=== PATIENT | female | born 1970 | race Caucasian/White ===

== ENCOUNTER → 2018-03-08 12:31 | Outpatient (CLI) | payer OTHER, SELFPAY ==
--- NOTE | 2018-03-08 | DI.MG.S_ITS ---
BILATERAL DIGITAL SCREENING MAMMOGRAM 3D/2D WITH CAD: 03/08/2018 CLINICAL: Routine screening. Comparison is made to exams dated: 01/26/2014 mammogram and 09/12/2010 mammogram - [facility]. The tissue of both breasts is heterogeneously dense. This may lower the sensitivity of mammography. Current study was also evaluated with a Computer Aided Detection (CAD) system. No significant masses, calcifications, or other findings are seen in either breast. There has been no significant interval change. IMPRESSION: NEGATIVE There is no mammographic evidence of malignancy. A 1 year screening mammogram is recommended. This exam was interpreted at Station ID: [id number]. NOTE: For mammograms, a report in lay terms will be sent to the patient. Approximately 15% of breast malignancies will not be visualized mammographically. In the management of a palpable breast mass, a negative mammogram must not discourage biopsy of a clinically suspicious lesion. Electronically Signed By: Stefan polanco/rajesh:03/08/2018 21:21:05 letter sent: Normal Exam ACR BI-RADS Category 1: Negative 3341F
== END ==
PROVIDERS: Family Provider Internal Medicine; PCP Internal Medicine; Visit Provider Internal Medicine
DX: Z12.31 Encounter for screening mammogram for malignant neoplasm of breast (principal)
CPT/HCPCS: 77063; 77067

== ENCOUNTER → 2019-03-08 17:55 | Outpatient (CLI) | payer OTHER, SELFPAY ==
--- NOTE | 2019-03-08 | DI.MG.S_ITS ---
BILATERAL DIGITAL SCREENING MAMMOGRAM 3D/2D WITH CAD: 03/08/2019 CLINICAL: Routine screening. Comparison is made to exams dated: 03/08/2018 mammogram, 01/26/2014 mammogram, 09/12/2010 mammogram, and 09/12/2010 [facility]. The tissue of both breasts is heterogeneously dense. This may lower the sensitivity of mammography. Current study was also evaluated with a Computer Aided Detection (CAD) system. No significant masses, calcifications, or other findings are seen in either breast. There has been no significant interval change. IMPRESSION: NEGATIVE There is no mammographic evidence of malignancy. A 1 year screening mammogram is recommended. This exam was interpreted at Station ID: [id number]. NOTE: For mammograms, a report in lay terms will be sent to the patient. Approximately 15% of breast malignancies will not be visualized mammographically. In the management of a palpable breast mass, a negative mammogram must not discourage biopsy of a clinically suspicious lesion. Electronically Signed By: Carlos angeles/[email or web address]:03/09/2019 19:02:02 letter sent: Normal Exam ACR BI-RADS Category 1: Negative 3341F
== END ==
PROVIDERS: Family Provider Internal Medicine; PCP Internal Medicine; Visit Provider Obstetrics & Gynecology
DX: Z12.31 Encounter for screening mammogram for malignant neoplasm of breast (principal)
CPT/HCPCS: 77063; 77067

== ENCOUNTER → 2021-01-18 13:12 | Outpatient (CLI) | payer OTHER, SELFPAY ==
--- NOTE | 2021-01-18 | DI.MG.S_ITS ---
BILATERAL DIGITAL SCREENING MAMMOGRAM 3D/2D WITH CAD: 01/18/2021 CLINICAL: Routine screening. Comparison is made to exams dated: 03/08/2019 mammogram, 03/08/2018 mammogram, and 01/26/2014 mammogram - [facility]. The tissue of both breasts is heterogeneously dense. This may lower the sensitivity of mammography. Current study was also evaluated with a Computer Aided Detection (CAD) system. No significant masses, calcifications, or other findings are seen in either breast. There has been no significant interval change. IMPRESSION: NEGATIVE There is no mammographic evidence of malignancy. A 1 year screening mammogram is recommended. This exam was interpreted at Station ID: [id number]. NOTE: For mammograms, a report in lay terms will be sent to the patient. Approximately 15% of breast malignancies will not be visualized mammographically. In the management of a palpable breast mass, a negative mammogram must not discourage biopsy of a clinically suspicious lesion. Electronically Signed By: Darron claros/rajesh:01/18/2021 13:33:16 letter sent: Normal Exam ACR BI-RADS Category 1: Negative 3341F
== END ==
PROVIDERS: Family Provider Internal Medicine; PCP Family Medicine; Referring Provider Family Medicine; Visit Provider Family Medicine
DX: Z12.31 Encounter for screening mammogram for malignant neoplasm of breast (principal)
CPT/HCPCS: 77063; 77067

== ENCOUNTER → 2021-04-27 08:19 | Outpatient (CLI) | payer OTHER, SELFPAY ==
[2021-04-27 09:02] LABS: Add Manual Diff / Slide Review NO; Basophils Absolute Auto 0 /uL (0-100); Basophils Percent Auto 0.6 % (0-2); Eosinophils Absolute Auto 100 /uL (0-450); Eosinophils Percent Auto 1.4 % (2-4); Hematocrit 42.2 % (36-46); Hemoglobin 14.2 g/dL (12.0-16.0); Lymphocytes Absolute Auto 1400 /uL (1100-4500); Lymphocytes Percent Auto 30.4 % (25-40); Mean Corpuscular HGB Conc 33.7 % (30-36); Mean Corpuscular Hemoglobin 31.1 PG (26-34); Mean Corpuscular Volume 92.4 fL (80-100); Monocytes Absolute Auto 400 /uL (0-900); Monocytes Percent Auto 8.9 % (3-14); Neutrophils Absolute Auto 2700 /uL (1500-7000); Neutrophils Percent Auto 58.7 % (50-75); Platelet Count 289 X10^3/uL (150-400); Red Blood Cell Count 4.57 X10^6/uL (4.0-5.2); Red Cell Distribution Width 12.5 % (11.6-14.8); White Blood Cell Count 4.6 X10^3/uL (4.5-11.0)
[2021-04-27 09:28] LABS: BUN Creatinine Ratio 18.8 (6-22); Blood Urea Nitrogen 15 mg/dL (7-17); Calcium 9.2 mg/dL (8.4-10.2); Carbon Dioxide 30 mmol/L (22-32); Chloride 107 mmol/L (98-107); Estimated Glomerular Filt Rate > 60.0 mL/min (>60); Glucose 90 mg/dL (70-100); HEMOLYSIS < 15 (0-50); Potassium 4.3 mmol/L (3.4-5.1); Sodium 141 mmol/L (137-145)
[2021-04-27 10:01] LABS: Thyroid Stimulating Hormone 2.35 uIU/mL (0.47-4.68)
[2021-04-28 09:46] LABS: Cholesterol HDL Ratio 2.6 ratio (0.0-4.4); Cholesterol,Total 139 mg/dL (100-199); HDL Cholesterol 53 mg/dL (>39); LDL Cholesterol Cal 76 mg/dL (0-99); Triglycerides 45 mg/dL (0-149); VLDL Cholesterol Cal 10 mg/dL (5-40)
== END ==
PROVIDERS: Family Provider Internal Medicine; PCP Family Medicine; Referring Provider Obstetrics & Gynecology; Visit Provider Obstetrics & Gynecology
DX: N95.1 Menopausal and female climacteric states (principal)
CPT/HCPCS: 36415; 80048; 80061; 84439; 84443; 85025

== ENCOUNTER → 2021-04-30 09:06 | Outpatient (CLI) | payer OTHER, SELFPAY ==
[2021-04-30 09:45] LABS: COVID19 -Nasal RAPID Negative (Negative)
== END ==
PROVIDERS: Family Provider Internal Medicine; PCP Family Medicine; Visit Provider Nurse Practitioner Family
DX: Z20.822 Contact with and (suspected) exposure to COVID-19 (principal); J02.9 Acute pharyngitis, unspecified; R09.81 Nasal congestion
CPT/HCPCS: 87635

== ENCOUNTER → 2022-01-29 14:12 | Outpatient (CLI) | payer OTHER, SELFPAY ==
--- NOTE | 2022-01-29 14:14 | DI.MG.S_ITS ---
BILATERAL DIGITAL SCREENING MAMMOGRAM 3D/2D WITH CAD: 01/29/2022 CLINICAL: Routine screening. Comparison is made to exams dated: 01/18/2021 mammogram, 03/08/2019 mammogram, and 03/08/2018 mammogram - [facility]. The tissue of both breasts is heterogeneously dense. This may lower the sensitivity of mammography. Current study was also evaluated with a Computer Aided Detection (CAD) system. No significant masses, calcifications, or other findings are seen in either breast. There has been no significant interval change. IMPRESSION: NEGATIVE There is no mammographic evidence of malignancy. A 1 year screening mammogram is recommended. Based on the Tyrer Cuzick model (a risk assessment model) the patient's lifetime risk is 13.9% and her 10 year risk is 3.3%. According to the ACR, ACS, and NCCN guidelines, an annual breast MRI exam along with mammogram is recommended if the patient's lifetime risk is 20% or greater. This exam was interpreted at Station ID: [id number]. NOTE: For mammograms, a report in lay terms will be sent to the patient. Approximately 15% of breast malignancies will not be visualized mammographically. In the management of a palpable breast mass, a negative mammogram must not discourage biopsy of a clinically suspicious lesion. Electronically Signed By: Usman [email or web address]/[email or web address]:01/29/2022 15:03:18 letter sent: Normal Exam ACR BI-RADS Category 1: Negative 3341F
== END ==
PROVIDERS: Family Provider Internal Medicine; PCP Family Medicine; Referring Provider Family Medicine; Visit Provider Family Medicine
DX: Z12.31 Encounter for screening mammogram for malignant neoplasm of breast (principal)
CPT/HCPCS: 77063; 77067

== ENCOUNTER → 2022-03-12 11:05 | Outpatient (CLI) | payer OTHER, SELFPAY ==
[2022-03-12 12:54] LABS: COVID19 -Nasal RAPID Negative (Negative)
== END ==
PROVIDERS: Family Provider Family Medicine; PCP Family Medicine; Visit Provider Surgery
DX: Z20.822 Contact with and (suspected) exposure to COVID-19 (principal); Z01.812 Encounter for preprocedural laboratory examination
CPT/HCPCS: 87635; C9803

== ENCOUNTER 2022-03-13 08:02 | Day surgery (SDC) | payer OTHER, SELFPAY ==
[2022-03-13 08:24] VITALS: BP 107/73; PULSE 62; RESP 16; TEMP 36.2; O2SAT 100; BMI 25.8
[2022-03-13] MEDS: LACTATED RINGERS 1,000 ML 150 ML IV (08:33)
--- NOTE | 2022-03-13 09:05 | PM.HP.1 ---
History of Present Illness History of Present Illness Date Patient Seen: 03/13/22 Time Patient Seen: 09:05 Chief complaint: SDC Narrative: Damaris is a 51-year-old woman who is here for colonoscopy for colon cancer screening. She has never had a colonoscopy before. She has no known family history of colon cancer. Patient History Medical History (Updated 03/13/22 @ 09:06 by Lauro Roblero MD) Abnormal Pap smear of cervix (~1993) Acquired short leg syndrome on left Actinic keratosis (~2003) Anemia (~1987) Anxiety (~2004) Back stiffness Carpal tunnel syndrome (~1995) Cervical somatic dysfunction Chicken pox (~1977) Chronic right hip pain Coccyx disorder Depression (~2004) Endometriosis (~2002) Foot pain (~2009) Fracture (~1994) Generalized anxiety disorder with panic attacks Headache (~1986) Heavy menstrual period (~1985) History of iron deficiency anemia Iliotibial band syndrome, right leg Infertility (~2001) Irregular menstrual cycle (~1985) Lumbar region somatic dysfunction Migraines (~1999) Painful menstrual periods (~1985) Pelvic floor dysfunction in female Pelvic somatic dysfunction Piriformis syndrome of right side PMDD (premenstrual dysphoric disorder) (~2006) Pulmonary fibrosis Ruptured tympanic membrane (~1994) Sacral region somatic dysfunction Segmental and somatic dysfunction of abdomen and other regions Segmental and somatic dysfunction of rib cage Somatic dysfunction of lower extremity Sprain and strain of sacrotuberous (ligament) Stress incontinence Thoracic region somatic dysfunction Vertigo (~2014) Vision disorder Surgical History Anesthesia History of third molar tooth extraction (~1986) In vitro fertilization (~2002) Ovarian cyst rupture (~2002) Status post hysteroscopy (~2002) Status post laparotomy (~2002) Status post osteotomy (~06/2014) Family & Social History Family History (Updated 03/15/20 @ 11:32 by Andrzej Lorenzo DO) Father Age: 78 Hypertension High cholesterol Gout Mother Lung cancer Heart disease Hypertension Mental health problem Sister Age: 52 Anxiety and depression Sister Age: 49 Bipolar 1 disorder Grandfather No problems noted. Grandmother No problems noted. Grandfather No problems noted. Grandmother No problems noted. Social History: household members family Tobacco & Substance use: Smoking Status Never smoker alcohol intake frequency holiday/special occasion Substance Use Type does not use Meds Home Medications and Allergies Home Medications Medication Instructions Recorded Confirmed Type bupropion HCl 150 mg tablet,12 hr 150 mg PO BID #180 tabs 01/14/22 03/13/22 Rx sustained-release lorazepam 0.5 mg tablet See Rx Instructions .Route 02/10/22 03/13/22 Rx .COMPLEX #30 tabs Allergies Allergy/AdvReac Type Severity Reaction Status Date / Time amoxicillin [From AUGMENTIN] Allergy Mild rash Verified 03/13/22 08:22 clavulanic acid Allergy Mild rash Verified 03/13/22 08:22 [From AUGMENTIN] latex Allergy Mild Verified 03/13/22 08:22 Exam Vital Signs (past 8 hours): - 03/13/22 08:24 Temperature 97.1 F L Pulse Rate 62 Respiratory Rate 16 Blood Pressure 107/73 Pulse Oximetry 100 Oxygen Delivery Method Room Air Oxygen Delivery Method Room Air Const General: No acute distress Resp Effort & Inspection: normal respiratory effort Assessment & Plan Assessment and plan (1) Colon cancer screening: Status: Acute Plan Discussed risks and benefits of colonoscopy for colon cancer screening and she would like to proceed. Time Spent With Patient Critical Care time: I spent a total of [] minutes of critical care time on this patient's care today; this time is exclusive of procedural time.
[2022-03-13] MEDS: fentaNYL 100 MCG/2 ML INJ IV (09:18)
[2022-03-13] MEDS: MIDAZOLAM 5 MG/5 ML VIAL IV (09:18)
--- NOTE | 2022-03-13 09:33 | PM.OP.COLON ---
Operative Date/Time/Diagnoses Date of procedure: 03/13/22 Time of procedure: 09:33 Pre-op diagnosis: Colon cancer screening Post-op diagnosis: same Procedure & Clinicians Study performed: Colonoscopy Same procedure as scheduled: Yes Surgeon: Lauro Roblero Procedure Notes Procedure in detail: Surgeon: Lauro Roblero MD Procedure: The patient was brought to the endoscopy suite, placed in left lateral decubitus position. The patient was connected to monitoring devices. A time-out was performed. Sedation was administered. Once the patient was adequately sedated, a digital rectal exam was performed and was normal. The scope was then inserted and advanced to the cecum where the appendiceal orifice was identified and photographed. The scope was then slowly withdrawn over greater than 6 minutes. The mucosa was thoroughly inspected. No lesions were noted. The scope was retroflexed in the rectum. There were no abnormalities noted. The scope was straightened and removed. The patient was awakened and brought to recovery. Versed: 5 mg Fentanyl: 125 mcg EBL: 0 Findings: Normal colon Scope withdrawal time: 6 Sedation minutes: 19 Post-procedure Recommendations: Colonoscopy in 10 years Disposition: PACU
[2022-03-13 09:36] VITALS: BP 101/68; PULSE 58; RESP 12; TEMP 36.1; O2SAT 93
[2022-03-13 09:41] VITALS: BP 102/72; PULSE 62; RESP 14; O2SAT 96
[2022-03-13 09:46] VITALS: BP 105/75; PULSE 66; RESP 16; O2SAT 98
[2022-03-13 09:53] VITALS: BP 113/77; PULSE 60; RESP 16; TEMP 36.2; O2SAT 98
--- NOTE | 2022-03-13 09:55 | SUR.PHASEII ---
Pt A&Ox4, denies any distress, abd soft, VSS and ready to discharge home. Instructions reviewed with pt with time allowed for questions. Called ride, left 2 messages. Handoff to GERA Javed to monitor pt while awaiting ride.
== END 2022-03-13 10:04 | disposition home or self-care (01) ==
PROVIDERS: Family Provider Family Medicine; PCP Family Medicine; Referring Provider Surgery; Visit Provider Surgery
PROC: 0DJD8ZZ Inspection of Lower Intestinal Tract, Via Natural or Artificial Opening Endoscopic (ICD-10-PCS; CPT 45378; principal; 2022-03-13 09:00)
DX: Z12.11 Encounter for screening for malignant neoplasm of colon (principal)
CPT/HCPCS: 45378; 99152; J2250; J3010

== ENCOUNTER 2022-08-19 16:00 | Outpatient (RCR) | payer OTHER, SELFPAY ==
--- NOTE | 2022-04-22 18:12 | PT.OIE ---
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) Other chronic pain (04/22/22) Unequal limb length (acquired), unspecified site (04/22/22) Pain in right hip (04/22/22) Pain in left hip (04/22/22) Stiffness of unspecified joint, not elsewhere classified (04/22/22) Sacrococcygeal disorders, not elsewhere classified (04/22/22) Other specified disorders of muscle (04/22/22) Trochanteric bursitis, right hip (04/22/22) Iliotibial band syndrome, right leg (04/22/22) Dizziness and giddiness (04/22/22) Sprain of other parts of lumbar spine and pelvis, initial encounter (04/22/22) Personal history of other specified conditions (04/22/22) Past Medical History (Last Updated 07/17/21 @ 11:21 by Jone Lorenzo DO) Abnormal Pap smear of cervix (~1993) Acquired short leg syndrome on left Actinic keratosis (~2003) Anemia (~1987) Anxiety (~2004) Back stiffness Carpal tunnel syndrome (~1995) Cervical somatic dysfunction Chicken pox (~1977) Chronic right hip pain Coccyx disorder Depression (~2004) Endometriosis (~2002) Foot pain (~2009) Fracture (~1994) Generalized anxiety disorder with panic attacks Headache (~1986) Heavy menstrual period (~1985) History of iron deficiency anemia Iliotibial band syndrome, right leg Infertility (~2001) Irregular menstrual cycle (~1985) Lumbar region somatic dysfunction Migraines (~1999) Painful menstrual periods (~1985) Pelvic floor dysfunction in female Pelvic somatic dysfunction Piriformis syndrome of right side PMDD (premenstrual dysphoric disorder) (~2006) Pulmonary fibrosis Ruptured tympanic membrane (~1994) Sacral region somatic dysfunction Segmental and somatic dysfunction of abdomen and other regions Segmental and somatic dysfunction of rib cage Somatic dysfunction of lower extremity Sprain and strain of sacrotuberous (ligament) Stress incontinence Thoracic region somatic dysfunction Vertigo (~2014) Vision disorder Past Surgical History (Last Reviewed 03/15/20 @ 11:31 by Jone Lorenzo DO) Anesthesia History of third molar tooth extraction (~1986) In vitro fertilization (~2002) Ovarian cyst rupture (~2002) Status post hysteroscopy (~2002) Status post laparotomy (~2002) Status post osteotomy (~06/2014) Visit Care Team Role Provider Type Jone Lorenzo DO Attending Provider Physician Family Provider Primary Care Provider Referring Provider Specialty: Family Practice Address: [address] [place] [address], [facility] Email: Physical Therapy Initial Evaluation PT-OP-A Visit Information Start: 04/22/22 08:55 Freq: Status: Active Protocol: Document 04/22/22 16:02 [facility] (Rec: 04/22/22 16:56 [facility] [id number]) Out-Patient Physical Therapy Visit Information Visit Information Visit Type Initial Evaluation Visit Start Time 16:00 Visit Stop Time 16:45 Total Visit Minutes 45 Visit Number 1 Evaluation Information Evaluation Date 04/22/22 PT-OP-B Current Condition Start: 04/22/22 08:55 Freq: Status: Active Protocol: Document 04/22/22 16:02 [facility] (Rec: 04/22/22 16:56 [facility] [id number]) Current Condition History of Current Condition History of Current Condition has a history of her tailbone being dislocated with her last baby, running causes c/o tailbone pain when she stopped running. Right sided muscle tightness at the sitting bone. Her right upper trap is connected to her right sided sitting bone they seem to go together. Hiking can be painful on her right hip if she is doing up/down hill. Gardening she does do but she feels it in her hip. SHe loves running and hasn't gotten to do it much PT-OP-F Manual Assessment Start: 04/22/22 08:55 Freq: Status: Active Protocol: Document 04/22/22 16:00 [facility] (Rec: 04/22/22 18:10 [facility] [id number]) Manual Assessments Soft Tissue Assessment Soft Tissue Mobility Assessment levator ani guarding R>L pelvic floor , coccygeus and illiococcygeus, guarding of the transverse perineum on the right posterior gluteal tightness R> L tightness of the iliopsoas right side Other Manual Assessments Other Manual Assessments right anterior innominant with right leg longer in supine PT-OP-I Pelvic Floor Start: 04/22/22 08:55 Freq: Status: Active Protocol: Document 04/22/22 16:00 [facility] (Rec: 04/22/22 18:10 [facility] [id number]) Pelvic Floor Assessment Pelvic Clock Pelvic Clock 3-6 Guarding,Tightness Pelvic Clock 6-9 Guarding,Tightness Pelvic Clock Other right greater than left guarding of the coccygeus and iliococcygeus Contraction Ability Voluntary Contraction Weak Voluntary Relaxation Weak Manual Muscle Testing Left 1 Manual Muscle Testing Right 1 Manual Muscle Testing Anterior 1 Manual Muscle Testing Posterior 1 Comments Pelvic Floor Comments pt is in a guarded position R> L levator ani and is unable to fully relax in the pelvic floor. She has very limited ability to contract the pelvic floor most likely as she has been in a guarded position. There is pain noted along the right side of the coccyx PT-OP-J Posture/Palpation/Skin Start: 04/22/22 08:55 Freq: Status: Active Protocol: Document 04/22/22 16:00 [facility] (Rec: 04/22/22 18:10 [facility] [id number]) Palpation Assessment Location piriformis Palpation Location Right piriformis Palpation Findings Soft Tissue Tightness,Muscle Guarding,Tenderness obturator internus Palpation Location right side Palpation Findings Soft Tissue Tightness,Muscle Guarding,Tenderness Transverse perineal muscle Palpation Findings Edema,Spasm,Muscle Guarding, Tenderness coccyx Palpation Location right lateral side of the coccyx Palpation Findings Soft Tissue Tightness,Muscle Guarding,Tenderness PT-OP-K Range of Motion Start: 04/22/22 18:10 Freq: Status: Active Protocol: Document 04/22/22 16:00 [facility] (Rec: 04/22/22 18:11 [facility] [id number]) Hip Goniometric Range of Motion Hip ROM Limitations Hip ROM Limitations Soft Tissue Tightness Comments pt is limited R>L for hip ER/ IR, hip flexion, and hip extension + radha test on the right PT-OP-L Special Tests Start: 04/22/22 08:55 Freq: Status: Active Protocol: Document 04/22/22 16:00 [facility] (Rec: 04/22/22 18:12 [facility] [id number]) Special Tests Lumbar Spine Special Tests ASLR TEST Test Results positive on the right for SI joint unlocking with left hip movement PT-OP-Q Treatments Start: 04/22/22 08:55 Freq: Status: Active Protocol: Document 04/22/22 16:00 [facility] (Rec: 04/22/22 18:10 [facility] [id number]) Therapeutic Exercises Supine Exercises iliopsoas stretch in radha test position Reps/Minutes hold 1-2 min modified squat stretch for pelvic floor relaxation Supine Exercise Name modified squat stretch Reps/Minutes hold 1-2 min Self-Care/Home Management Treatment Education Patient Education Home Exercise Program,Pain Management Other Education pt educated in use of a pelvic wand for self release of the pelvic floor, miracle balls for self release of the gluteals, we talked about relaxed awareness of her gluteals at rest PT-OP-T Assessment and Plan Start: 04/22/22 08:55 Freq: Status: Active Protocol: Document 04/22/22 16:00 [facility] (Rec: 04/22/22 18:10 [facility] [id number]) Physical Therapy Assessment Rehab Potential Rehabilitation Potential Excellent Evaluation Complexity Number of Personal Factors/Comorbidities 0 Number of Body Systems Impaired 1-2 Clinical Presentation at Evaluation Stable Impairments Impairments Activity Tolerance,Functional Mobility,Pain,Soft Tissue Mobility,Strength Goals 3 Impairment pelvic floor weakness MMT 1/5, difficulty recruiting any pelvic floor muscles due to guarding and spasm [facility]cc Goal (LTG) once pelvic floor tone is reduced pt is able to recruit her pelvic floor and strengthen to improve muscle strength to a 3/5 MMT or better LTG Duration 12 weeks 2 Impairment guarding and spasm of the right>left levator ani specifically the coccygeus and iliococcygeus Short Term Goal (STG) Damaris is given home stretches to begin helping to reduce tension in her pelvic floor STG Duration 4 weeks [employer] Goal (LTG) Manual therapy techniques for the pelvic floor will be used to help reduce guarding and tension in the pelvic nesha and at the attachments to the coccyx bone LTG Duration 12 weeks 1 Impairment hip buttock and coccyx pain made worse with running and standing [facility]cc Goal (LTG) Damaris reports a overall reduction in her pain levels and is able to return to running 2 miles LTG Duration 12 weeks Assessment Summary Assessment Damaris is a 51 year old female referred to PT for chronic right sided hip and coccyx pain. She reports sustaining a coccyx dislocation giving 15 years ago. This coccyx pain becomes worse with running and standing and is rated 5/10. She has undergone previous PT for her hip which is better however this will at times still bother her. Damaris does also report urinary stress incontinence especially with running activities. She is running approx 1 mile at a time now due to pain but would like to be able to increase her milage. With a hip exam today Damaris is restricted in the right iliopsoas and right leg is longer than left in supine. Her right hip is tighter with all ROM than the left including hip flexion and IR/ ER. With pelvic floor examination her right iliococcygeus and coccygeus is guarded and tight. She is tender along the right side of the coccyx. There is guarding on the left lateral [place] as well however it is less than the right side. There is tenderness and tightness along the Transverse perineum on the right and the obturator internus on the right. Upon discussion Damaris does tense her gluteals during the day at rest. We talked about relaxed awareness of the gluteals. I did start with MFR for the levator ani and Damaris tolerated this well today. She has difficulty with any pelvic floor contractions most likely due to her guarding and tightness. She is a good candidate for PT working first on pelvic floor relaxation and then progressing to strengthening With pelvic examination today Damaris is guarded and Physical Therapy Plan Frequency and Duration Frequency of Treatment 1x/Week Duration of treatment (weeks) 12 Plan of Care Start Date 04/22/22 Plan of Care End Date 07/23/21 Therapeutic Interventions Therapeutic Interventions Home Exercise Program,Manual Therapy,Neuromuscular Re- education,Patient/Caregiver Education,Self-Care/Home Management,Soft Tissue Mobilization Modalities Biofeedback Next Visit Focus/Plan Next Note Type Treatment Note Next Visit Plan stretches for pelvic pain, MFR techniques for the levator ani and transvese perineum, iliopsoas release
--- NOTE | 2022-04-29 17:24 | PT.OTN ---
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/29/22) Other chronic pain (04/29/22) Unequal limb length (acquired), unspecified site (04/29/22) Pain in right hip (04/29/22) Pain in left hip (04/29/22) Stiffness of unspecified joint, not elsewhere classified (04/29/22) Sacrococcygeal disorders, not elsewhere classified (04/29/22) Other specified disorders of muscle (04/29/22) Trochanteric bursitis, right hip (04/29/22) Iliotibial band syndrome, right leg (04/29/22) Dizziness and giddiness (04/29/22) Sprain of other parts of lumbar spine and pelvis, initial encounter (04/29/22) Personal history of other specified conditions (04/29/22) Physical Therapy Treatment Note PT-OP-A Visit Information Start: 04/22/22 08:55 Freq: Status: Active Protocol: Document 04/29/22 15:59 [facility] (Rec: 04/29/22 17:15 [facility] [id number]) Out-Patient Physical Therapy Visit Information Visit Information Visit Type Treatment Note Visit Start Time 16:00 Visit Stop Time 16:45 Total Visit Minutes 45 Visit Number 2 PT-OP-B Current Condition Start: 04/22/22 08:55 Freq: Status: Active Protocol: Document 04/22/22 16:02 [facility] (Rec: 04/22/22 16:56 [facility] [id number]) Current Condition History of Current Condition History of Current Condition 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 Right sided muscle tightness at the sitting bone. Her right upper trap is connected to her right sided sitting bone they seem to go together. Hiking can be painful on her right hip if she is doing up/down hill. Gardening she does do but she feels it in her hip. SHe loves running and hasn't gotten to do it much PT-OP-C Subjective Start: 04/22/22 08:55 Freq: Status: Active Protocol: Document 04/29/22 15:59 [facility] (Rec: 04/29/22 17:15 [facility] [id number]) OP-PT Subjective Patient Comments Patient Comments pt notes she did good the first two days after her evaluation working on not clenching her gluteals but then her daughters were in a car accident and things have been very stressful. PT-OP-F Manual Assessment Start: 04/22/22 08:55 Freq: Status: Active Protocol: Document 04/22/22 16:00 [facility] (Rec: 04/22/22 18:10 [facility] [id number]) Manual Assessments Soft Tissue Assessment Soft Tissue Mobility Assessment levator ani guarding R>L pelvic floor , coccygeus and illiococcygeus, guarding of the transverse perineum on the right posterior gluteal tightness R> L tightness of the iliopsoas right side Other Manual Assessments Other Manual Assessments right anterior innominant with right leg longer in supine PT-OP-I Pelvic Floor Start: 04/22/22 08:55 Freq: Status: Active Protocol: Document 04/29/22 16:00 [facility] (Rec: 04/29/22 17:24 [facility] [id number]) Pelvic Floor Assessment Comments Pelvic Floor Comments pt was able to relax a bit today and then was able to facilitate a little bit of a muscle contraction PT-OP-J Posture/Palpation/Skin Start: 04/22/22 08:55 Freq: Status: Active Protocol: Document 04/22/22 16:00 [facility] (Rec: 04/22/22 18:10 [facility] [id number]) Palpation Assessment Location piriformis Palpation Location Right piriformis Palpation Findings Soft Tissue Tightness,Muscle Guarding,Tenderness obturator internus Palpation Location right side Palpation Findings Soft Tissue Tightness,Muscle Guarding,Tenderness Transverse perineal muscle Palpation Findings Edema,Spasm,Muscle Guarding, Tenderness coccyx Palpation Location right lateral side of the coccyx Palpation Findings Soft Tissue Tightness,Muscle Guarding,Tenderness PT-OP-K Range of Motion Start: 04/22/22 18:10 Freq: Status: Active Protocol: Document 04/22/22 16:00 [facility] (Rec: 04/22/22 18:11 [facility] [id number]) Hip Goniometric Range of Motion Hip ROM Limitations Hip ROM Limitations Soft Tissue Tightness Comments pt is limited R>L for hip ER/ IR, hip flexion, and hip extension + radha test on the right PT-OP-L Special Tests Start: 04/22/22 08:55 Freq: Status: Active Protocol: Document 04/22/22 16:00 [facility] (Rec: 04/22/22 18:12 [facility] [id number]) Special Tests Lumbar Spine Special Tests ASLR TEST Test Results positive on the right for SI joint unlocking with left hip movement PT-OP-Q Treatments Start: 04/22/22 08:55 Freq: Status: Active Protocol: Document 04/29/22 16:00 [facility] (Rec: 04/29/22 17:24 [facility] [id number]) Manual Therapy Treatment Soft Tissue Mobilization transverse perineum Body Location Right Transverse perineal release Mobilization Type Myofascial Release levator ani relese Body Location right levator ani Body Position Hooklying Comments release of the right levator ani coccygeus and iliococcygeus with MFR technique Self-Care/Home Management Treatment Education Patient Education Home Exercise Program,Pain Management Other Education pt given education in dilator use and self release for the posterior pelvic floor. Damaris was also shown how to use miracle balls to release the gluteals in supine or tennis balls against the wall PT-OP-T Assessment and Plan Start: 04/22/22 08:55 Freq: Status: Active Protocol: Document 04/29/22 15:59 [facility] (Rec: 04/29/22 17:15 [facility] [id number]) Physical Therapy Assessment Assessment Summary Assessment worked on pelvic floor release from 6-9 on the pelvic clock today, pt shown how to use xs dilator for self release, Damaris was shown how to use miracle balls for self release . Leg length was checked and right leg longer in supine. MET performed for right anterior innominant rotation and pt shown self correction for home. Physical Therapy Plan Frequency and Duration Frequency of Treatment 1x/Week Duration of treatment (weeks) 12 Plan of Care Start Date 04/22/22 Plan of Care End Date 07/23/21 Next Visit Focus/Plan Next Note Type Treatment Note Next Visit Plan continue to work on MFR for the pelvic floor specifically the right side
--- NOTE | 2022-05-13 17:04 | PT.OTN ---
Current Diagnoses Lesion of sciatic nerve, right lower limb (05/13/22) Other chronic pain (05/13/22) Unequal limb length (acquired), unspecified site (05/13/22) Pain in right hip (05/13/22) Pain in left hip (05/13/22) Stiffness of unspecified joint, not elsewhere classified (05/13/22) Sacrococcygeal disorders, not elsewhere classified (05/13/22) Other specified disorders of muscle (05/13/22) Trochanteric bursitis, right hip (05/13/22) Iliotibial band syndrome, right leg (05/13/22) Dizziness and giddiness (05/13/22) Sprain of other parts of lumbar spine and pelvis, initial encounter (05/13/22) Personal history of other specified conditions (05/13/22) Physical Therapy Treatment Note PT-OP-A Visit Information Start: 04/22/22 08:55 Freq: Status: Active Protocol: Document 04/29/22 15:59 [facility] (Rec: 04/29/22 17:15 [facility] [id number]) Out-Patient Physical Therapy Visit Information Visit Information Visit Type Treatment Note Visit Start Time 16:00 Visit Stop Time 16:45 Total Visit Minutes 45 Visit Number 2 PT-OP-B Current Condition Start: 04/22/22 08:55 Freq: Status: Active Protocol: Document 04/22/22 16:02 [facility] (Rec: 04/22/22 16:56 [facility] [id number]) Current Condition History of Current Condition History of Current Condition 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 Right sided muscle tightness at the sitting bone. Her right upper trap is connected to her right sided sitting bone they seem to go together. Hiking can be painful on her right hip if she is doing up/down hill. Gardening she does do but she feels it in her hip. SHe loves running and hasn't gotten to do it much PT-OP-C Subjective Start: 04/22/22 08:55 Freq: Status: Active Protocol: Document 05/13/22 16:01 [facility] (Rec: 05/13/22 17:04 [facility] [id number]) OP-PT Subjective Patient Comments Patient Comments pt notes she is working on not clenching her gluteals PT-OP-F Manual Assessment Start: 04/22/22 08:55 Freq: Status: Active Protocol: Document 04/22/22 16:00 [facility] (Rec: 04/22/22 18:10 [facility] [id number]) Manual Assessments Soft Tissue Assessment Soft Tissue Mobility Assessment levator ani guarding R>L pelvic floor , coccygeus and illiococcygeus, guarding of the transverse perineum on the right posterior gluteal tightness R> L tightness of the iliopsoas right side Other Manual Assessments Other Manual Assessments right anterior innominant with right leg longer in supine PT-OP-I Pelvic Floor Start: 04/22/22 08:55 Freq: Status: Active Protocol: Document 04/29/22 16:00 [facility] (Rec: 04/29/22 17:24 [facility] [id number]) Pelvic Floor Assessment Comments Pelvic Floor Comments pt was able to relax a bit today and then was able to facilitate a little bit of a muscle contraction PT-OP-J Posture/Palpation/Skin Start: 04/22/22 08:55 Freq: Status: Active Protocol: Document 04/22/22 16:00 [facility] (Rec: 04/22/22 18:10 [facility] [id number]) Palpation Assessment Location piriformis Palpation Location Right piriformis Palpation Findings Soft Tissue Tightness,Muscle Guarding,Tenderness obturator internus Palpation Location right side Palpation Findings Soft Tissue Tightness,Muscle Guarding,Tenderness Transverse perineal muscle Palpation Findings Edema,Spasm,Muscle Guarding, Tenderness coccyx Palpation Location right lateral side of the coccyx Palpation Findings Soft Tissue Tightness,Muscle Guarding,Tenderness PT-OP-K Range of Motion Start: 04/22/22 18:10 Freq: Status: Active Protocol: Document 04/22/22 16:00 [facility] (Rec: 04/22/22 18:11 [facility] [id number]) Hip Goniometric Range of Motion Hip ROM Limitations Hip ROM Limitations Soft Tissue Tightness Comments pt is limited R>L for hip ER/ IR, hip flexion, and hip extension + radha test on the right PT-OP-L Special Tests Start: 04/22/22 08:55 Freq: Status: Active Protocol: Document 04/22/22 16:00 [facility] (Rec: 04/22/22 18:12 [facility] [id number]) Special Tests Lumbar Spine Special Tests ASLR TEST Test Results positive on the right for SI joint unlocking with left hip movement PT-OP-Q Treatments Start: 04/22/22 08:55 Freq: Status: Active Protocol: Document 05/13/22 16:01 [facility] (Rec: 05/13/22 17:04 [facility] [id number]) Therapeutic Exercises Standing Exercises standing squats with sitting bones spread Reps/Minutes x 5 reps Other Exercises kiki pose with emphasis on pelvic floor relaxation Reps/Minutes hold 1-2 minutes Manual Therapy Treatment Soft Tissue Mobilization transverse perineum Body Location Right Transverse perineal release Mobilization Type Myofascial Release levator ani relese Body Location right levator ani Body Position Hooklying Comments release of the right levator ani coccygeus and iliococcygeus with MFR technique Self-Care/Home Management Treatment Activities Self-Care/Home Management Activities pt educated in self release of her pelvic floor with the therawand PT-OP-T Assessment and Plan Start: 04/22/22 08:55 Freq: Status: Active Protocol: Document 05/13/22 16:01 [facility] (Rec: 05/13/22 17:04 [facility] [id number]) Physical Therapy Assessment Assessment Summary Assessment trial of standing squats with emphasis on pelvic floor relaxation and sitting bones spreading with a squat, pelvic floor activation with standing. Damaris could feel some pain from pelvic floor activation so we worked just on the opening up versus the tightening. She tends to shift over to her right side so was given verbal cues to keep feet even Physical Therapy Plan Frequency and Duration Frequency of Treatment 1x/Week Duration of treatment (weeks) 12 Plan of Care Start Date 04/22/22 Plan of Care End Date 07/23/21 Therapeutic Interventions Therapeutic Interventions Home Exercise Program,Manual Therapy,Neuromuscular Re- education,Patient/Caregiver Education,Self-Care/Home Management,Soft Tissue Mobilization Modalities Biofeedback Next Visit Focus/Plan Next Note Type Treatment Note Next Visit Plan review standing squats, also try sumo squat position, continue to work on MFR for the pelvic floor specifically the right side.
--- NOTE | 2022-05-20 16:45 | PT.OTN ---
Current Diagnoses Lesion of sciatic nerve, right lower limb (05/20/22) Other chronic pain (05/20/22) Unequal limb length (acquired), unspecified site (05/20/22) Pain in right hip (05/20/22) Pain in left hip (05/20/22) Stiffness of unspecified joint, not elsewhere classified (05/20/22) Sacrococcygeal disorders, not elsewhere classified (05/20/22) Other specified disorders of muscle (05/20/22) Trochanteric bursitis, right hip (05/20/22) Iliotibial band syndrome, right leg (05/20/22) Dizziness and giddiness (05/20/22) Sprain of other parts of lumbar spine and pelvis, initial encounter (05/20/22) Personal history of other specified conditions (05/20/22) Physical Therapy Treatment Note PT-OP-A Visit Information Start: 04/22/22 08:55 Freq: Status: Active Protocol: Document 05/20/22 16:00 [facility] (Rec: 05/21/22 09:20 [facility] [id number]) Out-Patient Physical Therapy Visit Information Visit Information Visit Type Treatment Note Visit Start Time 16:00 Visit Stop Time 16:45 Total Visit Minutes 45 Visit Number 4 PT-OP-B Current Condition Start: 04/22/22 08:55 Freq: Status: Active Protocol: Document 04/22/22 16:02 [facility] (Rec: 04/22/22 16:56 [facility] [id number]) Current Condition History of Current Condition History of Current Condition 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 Right sided muscle tightness at the sitting bone. Her right upper trap is connected to her right sided sitting bone they seem to go together. Hiking can be painful on her right hip if she is doing up/down hill. Gardening she does do but she feels it in her hip. SHe loves running and hasn't gotten to do it much PT-OP-C Subjective Start: 04/22/22 08:55 Freq: Status: Active Protocol: Document 05/20/22 16:10 [facility] (Rec: 05/20/22 16:26 [facility] [id number]) OP-PT Subjective Patient Comments Patient Comments pt notes its better after PT and then it comes back PT-OP-F Manual Assessment Start: 04/22/22 08:55 Freq: Status: Active Protocol: Document 04/22/22 16:00 [facility] (Rec: 04/22/22 18:10 [facility] [id number]) Manual Assessments Soft Tissue Assessment Soft Tissue Mobility Assessment levator ani guarding R>L pelvic floor , coccygeus and illiococcygeus, guarding of the transverse perineum on the right posterior gluteal tightness R> L tightness of the iliopsoas right side Other Manual Assessments Other Manual Assessments right anterior innominant with right leg longer in supine PT-OP-I Pelvic Floor Start: 04/22/22 08:55 Freq: Status: Active Protocol: Document 04/29/22 16:00 [facility] (Rec: 04/29/22 17:24 [facility] [id number]) Pelvic Floor Assessment Comments Pelvic Floor Comments pt was able to relax a bit today and then was able to facilitate a little bit of a muscle contraction PT-OP-J Posture/Palpation/Skin Start: 04/22/22 08:55 Freq: Status: Active Protocol: Document 04/22/22 16:00 [facility] (Rec: 04/22/22 18:10 [facility] [id number]) Palpation Assessment Location piriformis Palpation Location Right piriformis Palpation Findings Soft Tissue Tightness,Muscle Guarding,Tenderness obturator internus Palpation Location right side Palpation Findings Soft Tissue Tightness,Muscle Guarding,Tenderness Transverse perineal muscle Palpation Findings Edema,Spasm,Muscle Guarding, Tenderness coccyx Palpation Location right lateral side of the coccyx Palpation Findings Soft Tissue Tightness,Muscle Guarding,Tenderness PT-OP-K Range of Motion Start: 04/22/22 18:10 Freq: Status: Active Protocol: Document 04/22/22 16:00 [facility] (Rec: 04/22/22 18:11 [facility] [id number]) Hip Goniometric Range of Motion Hip ROM Limitations Hip ROM Limitations Soft Tissue Tightness Comments pt is limited R>L for hip ER/ IR, hip flexion, and hip extension + radha test on the right PT-OP-L Special Tests Start: 04/22/22 08:55 Freq: Status: Active Protocol: Document 04/22/22 16:00 [facility] (Rec: 04/22/22 18:12 [facility] [id number]) Special Tests Lumbar Spine Special Tests ASLR TEST Test Results positive on the right for SI joint unlocking with left hip movement PT-OP-Q Treatments Start: 04/22/22 08:55 Freq: Status: Active Protocol: Document 05/20/22 16:00 [facility] (Rec: 05/21/22 09:20 [facility] [id number]) Therapeutic Exercises Supine Exercises supine ball squeeze with pelvic floor activation Reps/Minutes x 10 reps 5 sec holds Manual Therapy Treatment Soft Tissue Mobilization levator ani MFR working on both sides of the pelvic floor lifting up Body Position Hooklying Comments good tolerance with right sided pelvic floor relaxation following transverse perineum Body Location Right Transverse perineal release Mobilization Type Myofascial Release levator ani relese Body Location right levator ani Body Position Hooklying Comments release of the right levator ani coccygeus and iliococcygeus with MFR technique Self-Care/Home Management Treatment Education Patient Education Home Exercise Program,Posture Other Education worked on standing posture with relaxed gluteals, gave HEP of ball squeeze with pelvic floor facilitation PT-OP-T Assessment and Plan Start: 04/22/22 08:55 Freq: Status: Active Protocol: Document 05/20/22 16:00 [facility] (Rec: 05/21/22 09:20 [facility] [id number]) Physical Therapy Assessment Assessment Summary Assessment worked on standing posture today and Damaris feels that if she lets go of her gluts that there isn't anything holding her together. She can feel tightness in her anterior pelvic floor when relaxing the glutes. I did add in gentle pelvic floor contraction with a small ball squeeze today encouraging her to go lightly and stop if she has pain. She is still quite guarded on the right side of the levator ani and it is very difficult to facilitate a pelvic floor contraction as her floor is guarded. She did better today after MFR technique for the full pelvic floor. Damaris may also benefit from NMES to start waking up the PFM. Physical Therapy Plan Frequency and Duration Frequency of Treatment 1x/Week Duration of treatment (weeks) 12 Plan of Care Start Date 04/22/22 Plan of Care End Date 07/23/21 Therapeutic Interventions Therapeutic Interventions Home Exercise Program,Manual Therapy,Neuromuscular Re- education,Patient/Caregiver Education,Self-Care/Home Management,Soft Tissue Mobilization Modalities Biofeedback Next Visit Focus/Plan Next Note Type Treatment Note Next Visit Plan trial of NMES next visit, EMG biofeedback for relaxed awareness of the levator ani, review stretches
--- NOTE | 2022-06-03 17:00 | PT.OTN ---
Current Diagnoses Lesion of sciatic nerve, right lower limb (06/03/22) Other chronic pain (06/03/22) Unequal limb length (acquired), unspecified site (06/03/22) Pain in right hip (06/03/22) Pain in left hip (06/03/22) Stiffness of unspecified joint, not elsewhere classified (06/03/22) Sacrococcygeal disorders, not elsewhere classified (06/03/22) Other specified disorders of muscle (06/03/22) Trochanteric bursitis, right hip (06/03/22) Iliotibial band syndrome, right leg (06/03/22) Dizziness and giddiness (06/03/22) Sprain of other parts of lumbar spine and pelvis, initial encounter (06/03/22) Personal history of other specified conditions (06/03/22) Physical Therapy Treatment Note PT-OP-A Visit Information Start: 04/22/22 08:55 Freq: Status: Active Protocol: Document 06/03/22 16:05 [facility] (Rec: 06/04/22 10:42 [facility] [id number]) Out-Patient Physical Therapy Visit Information Visit Information Visit Type Treatment Note Visit Start Time 16:05 Visit Stop Time 16:55 Total Visit Minutes 50 Visit Number 5 Evaluation Information Evaluation Date 04/22/22 PT-OP-B Current Condition Start: 04/22/22 08:55 Freq: Status: Active Protocol: Document 04/22/22 16:02 [facility] (Rec: 04/22/22 16:56 [facility] [id number]) Current Condition History of Current Condition History of Current Condition 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 Right sided muscle tightness at the sitting bone. Her right upper trap is connected to her right sided sitting bone they seem to go together. Hiking can be painful on her right hip if she is doing up/down hill. Gardening she does do but she feels it in her hip. SHe loves running and hasn't gotten to do it much PT-OP-C Subjective Start: 04/22/22 08:55 Freq: Status: Active Protocol: Document 06/03/22 16:05 [facility] (Rec: 06/03/22 17:00 [facility] [id number]) OP-PT Subjective Patient Comments Patient Comments pt notes after last treatment she felt alot of mobility in her hips and things felt more even. She felt she could do down dog with much greater ease. She had about 1 to 1.5 weeks releif and now things are stiff again. She feels her leg length is off today as when she sat in her stool at work she could see different knee height. She has been trying to work on her stretches first thing in the am PT-OP-F Manual Assessment Start: 04/22/22 08:55 Freq: Status: Active Protocol: Document 04/22/22 16:00 [facility] (Rec: 04/22/22 18:10 [facility] [id number]) Manual Assessments Soft Tissue Assessment Soft Tissue Mobility Assessment levator ani guarding R>L pelvic floor , coccygeus and illiococcygeus, guarding of the transverse perineum on the right posterior gluteal tightness R> L tightness of the iliopsoas right side Other Manual Assessments Other Manual Assessments right anterior innominant with right leg longer in supine PT-OP-I Pelvic Floor Start: 04/22/22 08:55 Freq: Status: Active Protocol: Document 04/29/22 16:00 [facility] (Rec: 04/29/22 17:24 [facility] [id number]) Pelvic Floor Assessment Comments Pelvic Floor Comments pt was able to relax a bit today and then was able to facilitate a little bit of a muscle contraction PT-OP-J Posture/Palpation/Skin Start: 04/22/22 08:55 Freq: Status: Active Protocol: Document 04/22/22 16:00 [facility] (Rec: 04/22/22 18:10 [facility] [id number]) Palpation Assessment Location piriformis Palpation Location Right piriformis Palpation Findings Soft Tissue Tightness,Muscle Guarding,Tenderness obturator internus Palpation Location right side Palpation Findings Soft Tissue Tightness,Muscle Guarding,Tenderness Transverse perineal muscle Palpation Findings Edema,Spasm,Muscle Guarding, Tenderness coccyx Palpation Location right lateral side of the coccyx Palpation Findings Soft Tissue Tightness,Muscle Guarding,Tenderness PT-OP-K Range of Motion Start: 04/22/22 18:10 Freq: Status: Active Protocol: Document 04/22/22 16:00 [facility] (Rec: 04/22/22 18:11 [facility] [id number]) Hip Goniometric Range of Motion Hip ROM Limitations Hip ROM Limitations Soft Tissue Tightness Comments pt is limited R>L for hip ER/ IR, hip flexion, and hip extension + radha test on the right PT-OP-L Special Tests Start: 04/22/22 08:55 Freq: Status: Active Protocol: Document 04/22/22 16:00 [facility] (Rec: 04/22/22 18:12 [facility] [id number]) Special Tests Lumbar Spine Special Tests ASLR TEST Test Results positive on the right for SI joint unlocking with left hip movement PT-OP-Q Treatments Start: 04/22/22 08:55 Freq: Status: Active Protocol: Document 06/03/22 16:07 [facility] (Rec: 06/03/22 17:00 [facility] [id number]) Therapeutic Exercises Supine Exercises supine hamstring stretch Side bilateral Reps/Minutes hold 1-2 min piriformis stretch Side bilateral Reps/Minutes hold 1-2 min Comments right greater than left tightness supine ball squeeze with pelvic floor activation Reps/Minutes x 10 reps 5 sec holds iliopsoas stretch in radha test position Reps/Minutes hold 1-2 min Comments right greater than left sided tightness Standing Exercises modified down dog stretch Reps/Minutes hold 1-2 min Comments hands on chair for support Manual Therapy Treatment Soft Tissue Mobilization transverse perineum Body Location Right Transverse perineal release Mobilization Type Myofascial Release Comments tenderness R TVP muscle, pt shown how to use her pelvic floor wand to perform self release in this area levator ani relese Body Location right levator ani Body Position Hooklying Comments release of the right levator ani coccygeus and iliococcygeus with MFR technique Manual Techniques right innominant outflare Type MET Reps/Duration x 4 reps Comments MET for right innominant out flare along with manual R piriformis stretch, R iliopsoas stretch, and left hamstring stretch corrected SI imbalance and leg length was then equal MET Type right innominant anterior rotation Reps/Duration x 5 reps Comments MET for right innominant rotation, leg length still off after treatment so ourflare right innominant was treated Neuro Re-Education Treatment Other Activities EMG biofeedback Comments EMG biofeedback for pt awareness of resting tone of the levator ani which was elevated to 2.0 uv at rest with intermittent muscle spasms. Pt was able to elicit some pelvic floor work but tended to guard so adductor assist was used to help facilitate the pelvic floor. Damaris was able to complete 10 reps of this without any c/ o pain or discomfort. NMES for the pelvic floor Reps/Duration 5 min Comments level 8 pt could feel contraction but mainly in anterior pelvic floor, by the end of the treatment she did feel some sensation in lateral [place] PT-OP-T Assessment and Plan Start: 04/22/22 08:55 Freq: Status: Active Protocol: Document 06/03/22 16:05 [facility] (Rec: 06/04/22 10:42 [facility] [id number]) Physical Therapy Assessment Goals 3 Impairment pelvic floor weakness MMT 1/5, difficulty recruiting any pelvic floor muscles due to guarding and spasm Health Director Goal (LTG) once pelvic floor tone is reduced pt is able to recruit her pelvic floor and strengthen to improve muscle strength to a 3/5 MMT or better LTG Duration 12 weeks 2 Impairment guarding and spasm of the right>left levator ani specifically the coccygeus and illiococcygeus Short Term Goal (STG) Damaris is given home stretches to begin helping to reduce tension in her pelvic floor STG Duration 4 weeks Residential Goal (LTG) Manual therapy techniques for the pelvic floor will be used to help reduce guarding and tension in the pelvic nesha and at the attachments to the coccyx bone LTG Duration 12 weeks 1 Impairment hip buttock and coccyx pain made worse with running and standing Residential Goal (LTG) Damaris reports a overall reduction in her pain levels and is able to return to running 2 miles LTG Duration 12 weeks Assessment Summary Assessment Damaris notes she had good relief x approx 1 week following last PT sessin. She has been trying to work on her stretches at home first thing in the am. Today with internal pelvic floor release she is still realy guarded and hypertonic in the right side of the levator ani especially the coccygeus and illiococcygeus. I am able to get the muscles to relax a bit however her contraction abiity is still very limited and her muscles feel frozen without mobility. We initiated NMES for the pelvic floor today to help with this and Damaris tolerated this well. Her sensation was mainly in the anterior pelvic floor although she did have some sensation start on the lateral [place] towards the end of the NMES treatment. When then initiated EMG biofeedback . Pelvic floor guarding and spasms were noted but with adductor assist Damaris was able to recruit her levator ani. She was given a HEP of adductor assist ball squeeze with pelvic floor activation x 5 seconds and to continue with her stretching routine. HEr right piriformis was very tight today so I encouraged this stretch especially. Physical Therapy Plan Frequency and Duration Frequency of Treatment 1x/Week Duration of treatment (weeks) 12 Plan of Care Start Date 04/22/22 Plan of Care End Date 07/23/21 Therapeutic Interventions Therapeutic Interventions Home Exercise Program,Manual Therapy,Neuromuscular Re- education,Patient/Caregiver Education,Self-Care/Home Management,Soft Tissue Mobilization Modalities Biofeedback Next Visit Focus/Plan Next Note Type Treatment Note Next Visit Plan Marie Elliott PT will see Damaris next visit. She will reassess coccyx and SI alignment.
--- NOTE | 2022-06-25 16:28 | PT.OTN ---
Current Diagnoses Lesion of sciatic nerve, right lower limb (06/25/22) Other chronic pain (06/25/22) Unequal limb length (acquired), unspecified site (06/25/22) Pain in right hip (06/25/22) Pain in left hip (06/25/22) Stiffness of unspecified joint, not elsewhere classified (06/25/22) Sacrococcygeal disorders, not elsewhere classified (06/25/22) Other specified disorders of muscle (06/25/22) Trochanteric bursitis, right hip (06/25/22) Iliotibial band syndrome, right leg (06/25/22) Dizziness and giddiness (06/25/22) Sprain of other parts of lumbar spine and pelvis, initial encounter (06/25/22) Personal history of other specified conditions (06/25/22) Physical Therapy Treatment Note PT-OP-A Visit Information Start: 04/22/22 08:55 Freq: Status: Active Protocol: Document 06/25/22 14:24 [facility] (Rec: 06/25/22 16:25 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 Right sided muscle tightness at the sitting bone. Her right upper trap is connected to her right sided sitting bone they seem to go together. Hiking can be painful on her right hip if she is doing up/down hill. Gardening she does do but she feels it in her hip. SHe loves running and hasn't gotten to do it much PT-OP-C Subjective Start: 04/22/22 08:55 Freq: Status: Active Protocol: Document 06/25/22 14:24 [facility] (Rec: 06/25/22 16:25 [facility] [id number]) OP-PT Subjective Patient Comments Patient Comments She has been using the pelvic wand on weekends and that helps and in the AMs she stretches an ddoes her pelvic floor exercises. She finds if pelvic floor is tight then she gets pain pretty quickly. The last few days she hasn't done too much stretching. She has been trying to keep her legs aligned. Right now she feels pretty tight. PT-OP-F Manual Assessment Start: 04/22/22 08:55 Freq: Status: Active Protocol: Document 04/22/22 16:00 [facility] (Rec: 04/22/22 18:10 [facility] [id number]) Manual Assessments Soft Tissue Assessment Soft Tissue Mobility Assessment levator ani guarding R>L pelvic floor , coccygeus and illiococcygeus, guarding of the transverse perineum on the right posterior gluteal tightness R> L tightness of the iliopsoas right side Other Manual Assessments Other Manual Assessments right anterior innominant with right leg longer in supine PT-OP-I Pelvic Floor Start: 04/22/22 08:55 Freq: Status: Active Protocol: Document 04/29/22 16:00 [facility] (Rec: 04/29/22 17:24 [facility] [id number]) Pelvic Floor Assessment Comments Pelvic Floor Comments pt was able to relax a bit today and then was able to facilitate a little bit of a muscle contraction PT-OP-J Posture/Palpation/Skin Start: 04/22/22 08:55 Freq: Status: Active Protocol: Document 04/22/22 16:00 [facility] (Rec: 04/22/22 18:10 [facility] [id number]) Palpation Assessment Location piriformis Palpation Location Right piriformis Palpation Findings Soft Tissue Tightness,Muscle Guarding,Tenderness obturator internus Palpation Location right side Palpation Findings Soft Tissue Tightness,Muscle Guarding,Tenderness Transverse perineal muscle Palpation Findings Edema,Spasm,Muscle Guarding, Tenderness coccyx Palpation Location right lateral side of the coccyx Palpation Findings Soft Tissue Tightness,Muscle Guarding,Tenderness PT-OP-K Range of Motion Start: 04/22/22 18:10 Freq: Status: Active Protocol: Document 04/22/22 16:00 [facility] (Rec: 04/22/22 18:11 [facility] [id number]) Hip Goniometric Range of Motion Hip ROM Limitations Hip ROM Limitations Soft Tissue Tightness Comments pt is limited R>L for hip ER/ IR, hip flexion, and hip extension + radha test on the right PT-OP-L Special Tests Start: 04/22/22 08:55 Freq: Status: Active Protocol: Document 04/22/22 16:00 [facility] (Rec: 04/22/22 18:12 [facility] [id number]) Special Tests Lumbar Spine Special Tests ASLR TEST Test Results positive on the right for SI joint unlocking with left hip movement PT-OP-Q Treatments Start: 04/22/22 08:55 Freq: Status: Active Protocol: Document 06/25/22 14:24 [facility] (Rec: 06/25/22 16:25 [facility] [id number]) Manual Therapy Treatment Soft Tissue Mobilization hip flexors Body Location R ilicaus Mobilization Type Sustained Pressure Intensity/Depth Moderate Body Position Hooklying Comments 90/90 position FM abdomen Body Location R to L Mobilization Type Sustained Pressure Intensity/Depth Moderate Body Position Hooklying Comments w/LTR Joint Mobilizations innominate Joint R Direction caudal, flex, ER FM sacrum Joint R distraction & R UPA FM coccyx Joint L UPA & R distraction FM hip Joint R inf & hip on axis ER FM Self-Care/Home Management Treatment Education Other Education edu re: anatomy of abdomen and how close that is to some of hip rotators and pelvis and sacrum so could be creating tightness from scar tissue PT-OP-T Assessment and Plan Start: 04/22/22 08:55 Freq: Status: Active Protocol: Document 06/25/22 14:24 [facility] (Rec: 06/25/22 16:25 [facility] [id number]) Physical Therapy Assessment Goals 3 Impairment pelvic floor weakness MMT 1/5, difficulty recruiting any pelvic floor muscles due to guarding and spasm Disassembler Goal (LTG) once pelvic floor tone is reduced pt is able to recruit her pelvic floor and strengthen to improve muscle strength to a 3/5 MMT or better LTG Duration 12 weeks 2 Impairment guarding and spasm of the right>left levator ani specifically the coccygeus and illiococcygeus Short Term Goal (STG) Damaris is given home stretches to begin helping to reduce tension in her pelvic floor STG Duration 4 weeks Group Home Goal (LTG) Manual therapy techniques for the pelvic floor will be used to help reduce guarding and tension in the pelvic nesha and at the attachments to the coccyx bone LTG Duration 12 weeks 1 Impairment hip buttock and coccyx pain made worse with running and standing Group Home Goal (LTG) Damaris reports a overall reduction in her pain levels and is able to return to running 2 miles LTG Duration 12 weeks Assessment Summary Assessment Pt had much improved ER after manual treatment today in R hip and felt looser. Improved hip flex w/discomfort coming later in the motion. 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 Physical Therapy Plan Frequency and Duration Frequency of Treatment 1x/Week Duration of treatment (weeks) 12 Plan of Care Start Date 04/22/22 Plan of Care End Date 07/23/21 Next Visit Focus/Plan Next Note Type Treatment Note Next Visit Plan Work on R ant visceral restrictions: around overy, uterus, colon, intestines, bellybutton and RA
--- NOTE | 2022-07-22 18:46 | PT.OTN ---
Current Diagnoses Lesion of sciatic nerve, right lower limb (07/22/22) Other chronic pain (07/22/22) Unequal limb length (acquired), unspecified site (07/22/22) Pain in right hip (07/22/22) Pain in left hip (07/22/22) Stiffness of unspecified joint, not elsewhere classified (07/22/22) Sacrococcygeal disorders, not elsewhere classified (07/22/22) Other specified disorders of muscle (07/22/22) Trochanteric bursitis, right hip (07/22/22) Iliotibial band syndrome, right leg (07/22/22) Dizziness and giddiness (07/22/22) Sprain of other parts of lumbar spine and pelvis, initial encounter (07/22/22) Personal history of other specified conditions (07/22/22) Physical Therapy Treatment Note PT-OP-A Visit Information Start: 04/22/22 08:55 Freq: Status: Active Protocol: Document 07/22/22 16:11 [facility] (Rec: 07/22/22 18:40 [facility] [id number]) Out-Patient Physical Therapy Visit Information Visit Information Visit Type Progress Note Visit Start Time 16:10 Visit Stop Time 17:55 Total Visit Minutes 45 Visit Number 7 PT-OP-B Current Condition Start: 04/22/22 08:55 Freq: Status: Active Protocol: Document 04/22/22 16:02 [facility] (Rec: 04/22/22 16:56 [facility] [id number]) Current Condition History of Current Condition History of Current Condition 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 Right sided muscle tightness at the sitting bone. Her right upper trap is connected to her right sided sitting bone they seem to go together. Hiking can be painful on her right hip if she is doing up/down hill. Gardening she does do but she feels it in her hip. SHe loves running and hasn't gotten to do it much PT-OP-C Subjective Start: 04/22/22 08:55 Freq: Status: Active Protocol: Document 07/22/22 16:11 [facility] (Rec: 07/22/22 18:40 [facility] [id number]) OP-PT Subjective Patient Comments Patient Comments pt notes her hip has been tight, her symptoms do get better when she does the stretching, she has been having more pain in the right plantar fascia and is on schedule for orthotics She has been using the pelvic wand and she feels that her pelvic floor is beginning to loosen PT-OP-F Manual Assessment Start: 04/22/22 08:55 Freq: Status: Active Protocol: Document 04/22/22 16:00 [facility] (Rec: 04/22/22 18:10 [facility] [id number]) Manual Assessments Soft Tissue Assessment Soft Tissue Mobility Assessment levator ani guarding R>L pelvic floor , coccygeus and illiococcygeus, guarding of the transverse perineum on the right posterior gluteal tightness R> L tightness of the iliopsoas right side Other Manual Assessments Other Manual Assessments right anterior innominant with right leg longer in supine PT-OP-I Pelvic Floor Start: 04/22/22 08:55 Freq: Status: Active Protocol: Document 04/29/22 16:00 [facility] (Rec: 04/29/22 17:24 [facility] [id number]) Pelvic Floor Assessment Comments Pelvic Floor Comments pt was able to relax a bit today and then was able to facilitate a little bit of a muscle contraction PT-OP-J Posture/Palpation/Skin Start: 04/22/22 08:55 Freq: Status: Active Protocol: Document 04/22/22 16:00 [facility] (Rec: 04/22/22 18:10 [facility] [id number]) Palpation Assessment Location piriformis Palpation Location Right piriformis Palpation Findings Soft Tissue Tightness,Muscle Guarding,Tenderness obturator internus Palpation Location right side Palpation Findings Soft Tissue Tightness,Muscle Guarding,Tenderness Transverse perineal muscle Palpation Findings Edema,Spasm,Muscle Guarding, Tenderness coccyx Palpation Location right lateral side of the coccyx Palpation Findings Soft Tissue Tightness,Muscle Guarding,Tenderness PT-OP-K Range of Motion Start: 04/22/22 18:10 Freq: Status: Active Protocol: Document 04/22/22 16:00 [facility] (Rec: 04/22/22 18:11 [facility] [id number]) Hip Goniometric Range of Motion Hip ROM Limitations Hip ROM Limitations Soft Tissue Tightness Comments pt is limited R>L for hip ER/ IR, hip flexion, and hip extension + radha test on the right PT-OP-L Special Tests Start: 04/22/22 08:55 Freq: Status: Active Protocol: Document 04/22/22 16:00 [facility] (Rec: 04/22/22 18:12 [facility] [id number]) Special Tests Lumbar Spine Special Tests ASLR TEST Test Results positive on the right for SI joint unlocking with left hip movement PT-OP-Q Treatments Start: 04/22/22 08:55 Freq: Status: Active Protocol: Document 07/22/22 16:11 [facility] (Rec: 07/22/22 18:40 [facility] [id number]) Therapeutic Exercises Standing Exercises modified down dog stretch Reps/Minutes hold 1-2 min Comments hands on chair for support Manual Therapy Treatment Soft Tissue Mobilization abdomen Body Location R to L Mobilization Type Sustained Pressure Intensity/Depth Moderate Body Position Hooklying Comments w/LTR levator ani MFR working on both sides of the pelvic floor lifting up Body Position Hooklying Comments good tolerance with right sided pelvic floor relaxation following Manual Techniques MET Type right innominant anterior rotation Reps/Duration x 5 reps Comments MET for right innominant rotation, leg length still off after treatment so ourflare right innominant was treated Self-Care/Home Management Treatment Education Patient Education Home Exercise Program,Posture Other Education pt was educated in down dog stretch with chair and hamstring flossing stretch in a squat position. She was educated on self abdominal massage and cobra stretch PT-OP-T Assessment and Plan Start: 04/22/22 08:55 Freq: Status: Active Protocol: Document 07/22/22 16:11 [facility] (Rec: 07/22/22 18:40 [facility] [id number]) Physical Therapy Assessment Goals 3 Impairment pelvic floor weakness MMT 1/5, difficulty recruiting any pelvic floor muscles due to guarding and spasm Mainframe Programmer Analyst Goal (LTG) once pelvic floor tone is reduced pt is able to recruit her pelvic floor and strengthen to improve muscle strength to a 3/5 MMT or better GOAL NOT YET MET LTG Duration 12 weeks 2 Impairment guarding and spasm of the right>left levator ani specifically the coccygeus and illiococcygeus Short Term Goal (STG) Damaris is given home stretches to begin helping to reduce tension in her pelvic floor Damaris is working on a home stretching program STG Duration 4 weeks Half-Way Goal (LTG) Manual therapy techniques for the pelvic floor will be used to help reduce guarding and tension in the pelvic nesha and at the attachments to the coccyx bone Good progress LTG Duration 12 weeks 1 Impairment hip buttock and coccyx pain made worse with running and standing Half-Way Goal (LTG) Damaris reports a overall reduction in her pain levels and is able to return to running 2 miles Damaris reports intermittent tailbone pain. LTG Duration 12 weeks Progress Towards Goals Progress Towards Goals Slow Progress - Other Progress Comments Damaris is making some progressm her guarding of the levator ani is decreasing and she is working on a home stretching program. She still has difficulty with pelvic floor recruitement and we will continue to work with NMES to help facilitate her pelvic floor. Assessment Summary Assessment Damaris is more relaxed in her levator ani now and has been using the therawand at home. She still has difficulty facilitating a contraction of the levator ani and would benefit from continued NMES. I did work on the scar tissue in the abdominal wall over the right ovary today and there is a good amount of adhesions. We will continue to work on this area to help decrease fascial pulling on the right that may be contributing to anterior pelvic rotation Physical Therapy Plan Frequency and Duration Frequency of Treatment 1x/Week Duration of treatment (weeks) 12 Plan of Care Start Date 07/22/22 Plan of Care End Date 10/14/22 Therapeutic Interventions Therapeutic Interventions Home Exercise Program,Manual Therapy,Neuromuscular Re- education,Patient/Caregiver Education,Therapeutic Exercises Next Visit Focus/Plan Next Note Type Treatment Note Next Visit Plan NMES for pelvic floor facilitation and continued MFR techniques.
--- NOTE | 2022-07-22 18:46 | PT.OPPOC ---
Physical, Occupational & Speech Therapy At [facility] Current Diagnoses Lesion of sciatic nerve, right lower limb (07/22/22) Other chronic pain (07/22/22) Unequal limb length (acquired), unspecified site (07/22/22) Pain in right hip (07/22/22) Pain in left hip (07/22/22) Stiffness of unspecified joint, not elsewhere classified (07/22/22) Sacrococcygeal disorders, not elsewhere classified (07/22/22) Other specified disorders of muscle (07/22/22) Trochanteric bursitis, right hip (07/22/22) Iliotibial band syndrome, right leg (07/22/22) Dizziness and giddiness (07/22/22) Sprain of other parts of lumbar spine and pelvis, initial encounter (07/22/22) Personal history of other specified conditions (07/22/22) Visit Care Team Role Provider Type Jone Lorenzo DO Attending Provider Physician Family Provider Primary Care Provider Referring Provider Specialty: [facility] Address: [address] [place] [address] Email: Plan Of Care PT-OP-T Assessment and Plan Start: 04/22/22 08:55 Freq: Status: Active Protocol: Document 07/22/22 16:11 [facility] (Rec: 07/22/22 18:40 [facility] [id number]) Physical Therapy Assessment Goals 3 Impairment pelvic floor weakness MMT 1/5, difficulty recruiting any pelvic floor muscles due to guarding and spasm Fpc Goal (LTG) once pelvic floor tone is reduced pt is able to recruit her pelvic floor and strengthen to improve muscle strength to a 3/5 MMT or better GOAL NOT YET MET LTG Duration 12 weeks 2 Impairment guarding and spasm of the right>left levator ani specifically the coccygeus and illiococcygeus Short Term Goal (STG) Damaris is given home stretches to begin helping to reduce tension in her pelvic floor Damaris is working on a home stretching program STG Duration 4 weeks Fpc Goal (LTG) Manual therapy techniques for the pelvic floor will be used to help reduce guarding and tension in the pelvic nesha and at the attachments to the coccyx bone Good progress LTG Duration 12 weeks 1 Impairment hip buttock and coccyx pain made worse with running and standing Fpc Goal (LTG) Damaris reports a overall reduction in her pain levels and is able to return to running 2 miles Damaris reports intermittent tailbone pain. LTG Duration 12 weeks Progress Towards Goals Progress Towards Goals Slow Progress - Other Progress Comments Damaris is making some progress her guarding of the levator ani is decreasing and she is working on a home stretching program. She still has difficulty with pelvic floor recruitment and we will continue to work with NMES to help facilitate her pelvic floor. Assessment Summary Assessment Damaris is more relaxed in her levator ani now and has been using the thera wand at home. She still has difficulty facilitating a contraction of the levator ani and would benefit from continued NMES. I did work on the scar tissue in the abdominal wall over the right ovary today and there is a good amount of adhesions. We will continue to work on this area to help decrease fascial pulling on the right that may be contributing to anterior pelvic rotation Physical Therapy Plan Frequency and Duration Frequency of Treatment 1x/Week Duration of treatment (weeks) 12 Plan of Care Start Date 07/22/22 Plan of Care End Date 10/14/22 Therapeutic Interventions Therapeutic Interventions Home Exercise Program,Manual Therapy,Neuromuscular Re- education,Patient/Caregiver Education,Therapeutic Exercises Next Visit Focus/Plan Next Note Type Treatment Note Next Visit Plan NMES for pelvic floor facilitation and continued MFR techniques. Plan of Care Dates Plan of Care Start Date 07/22/22 Plan of Care End Date 10/14/22 Electronically Signed by: Ericka Smith, PT 07/22/22 0259 If you are in agreement with this Plan of Care, please return a signed and dated copy. I have reviewed this Plan of Care and certify that the skilled therapy services above are required to meet the patient?s needs. Physician Signature Date Printed Name and Credentials Clinical Instructor Signature Printed Name and Credentials
--- NOTE | 2022-08-05 18:33 | PT.OTN ---
Current Diagnoses Lesion of sciatic nerve, right lower limb (08/05/22) Other chronic pain (08/05/22) Unequal limb length (acquired), unspecified site (08/05/22) Pain in right hip (08/05/22) Pain in left hip (08/05/22) Stiffness of unspecified joint, not elsewhere classified (08/05/22) Sacrococcygeal disorders, not elsewhere classified (08/05/22) Other specified disorders of muscle (08/05/22) Trochanteric bursitis, right hip (08/05/22) Iliotibial band syndrome, right leg (08/05/22) Dizziness and giddiness (08/05/22) Sprain of other parts of lumbar spine and pelvis, initial encounter (08/05/22) Personal history of other specified conditions (08/05/22) Physical Therapy Treatment Note PT-OP-A Visit Information Start: 04/22/22 08:55 Freq: Status: Active Protocol: Document 08/05/22 16:06 [facility] (Rec: 08/05/22 17:04 [facility] [id number]) Out-Patient Physical Therapy Visit Information Visit Information Visit Type Treatment Note Visit Start Time 16:06 Visit Stop Time 16:56 Total Visit Minutes 45 Visit Number 8 PT-OP-B Current Condition Start: 04/22/22 08:55 Freq: Status: Active Protocol: Document 04/22/22 16:02 [facility] (Rec: 04/22/22 16:56 [facility] [id number]) Current Condition History of Current Condition History of Current Condition 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 Right sided muscle tightness at the sitting bone. Her right upper trap is connected to her right sided sitting bone they seem to go together. Hiking can be painful on her right hip if she is doing up/down hill. Gardening she does do but she feels it in her hip. SHe loves running and hasn't gotten to do it much PT-OP-C Subjective Start: 04/22/22 08:55 Freq: Status: Active Protocol: Document 08/05/22 16:06 [facility] (Rec: 08/05/22 17:04 [facility] [id number]) OP-PT Subjective Patient Comments Patient Comments had tailbone pain after sitting quite a while when sitting on the plane, she noticed from the anterior scar work a greater awareness of the tightness in the front. Overall tailbone pain is better with her stretches. Damaris would like to look at her leg length today and also she feels she walks with her right leg turned out. PT-OP-F Manual Assessment Start: 04/22/22 08:55 Freq: Status: Active Protocol: Document 04/22/22 16:00 [facility] (Rec: 04/22/22 18:10 [facility] [id number]) Manual Assessments Soft Tissue Assessment Soft Tissue Mobility Assessment levator ani guarding R>L pelvic floor , coccygeus and illiococcygeus, guarding of the transverse perineum on the right posterior gluteal tightness R> L tightness of the iliopsoas right side Other Manual Assessments Other Manual Assessments right anterior innominant with right leg longer in supine PT-OP-I Pelvic Floor Start: 04/22/22 08:55 Freq: Status: Active Protocol: Document 04/29/22 16:00 [facility] (Rec: 04/29/22 17:24 [facility] [id number]) Pelvic Floor Assessment Comments Pelvic Floor Comments pt was able to relax a bit today and then was able to facilitate a little bit of a muscle contraction PT-OP-J Posture/Palpation/Skin Start: 04/22/22 08:55 Freq: Status: Active Protocol: Document 04/22/22 16:00 [facility] (Rec: 04/22/22 18:10 [facility] [id number]) Palpation Assessment Location piriformis Palpation Location Right piriformis Palpation Findings Soft Tissue Tightness,Muscle Guarding,Tenderness obturator internus Palpation Location right side Palpation Findings Soft Tissue Tightness,Muscle Guarding,Tenderness Transverse perineal muscle Palpation Findings Edema,Spasm,Muscle Guarding, Tenderness coccyx Palpation Location right lateral side of the coccyx Palpation Findings Soft Tissue Tightness,Muscle Guarding,Tenderness PT-OP-K Range of Motion Start: 04/22/22 18:10 Freq: Status: Active Protocol: Document 04/22/22 16:00 [facility] (Rec: 04/22/22 18:11 [facility] [id number]) Hip Goniometric Range of Motion Hip ROM Limitations Hip ROM Limitations Soft Tissue Tightness Comments pt is limited R>L for hip ER/ IR, hip flexion, and hip extension + radha test on the right PT-OP-L Special Tests Start: 04/22/22 08:55 Freq: Status: Active Protocol: Document 04/22/22 16:00 [facility] (Rec: 04/22/22 18:12 [facility] [id number]) Special Tests Lumbar Spine Special Tests ASLR TEST Test Results positive on the right for SI joint unlocking with left hip movement PT-OP-Q Treatments Start: 04/22/22 08:55 Freq: Status: Active Protocol: Document 08/05/22 16:06 [facility] (Rec: 08/05/22 17:04 [facility] [id number]) Manual Therapy Treatment Soft Tissue Mobilization abdomen Body Location R to L Mobilization Type Sustained Pressure Intensity/Depth Moderate Body Position Hooklying Comments w/LTR Joint Mobilizations MET for right pubic upslip Reps/Duration x 5 reps MET for right anterior rotation Reps/Duration x 5 reps Neuro Re-Education Treatment Other Activities NMES for the pelvic floor Details NMES for the pelvic floor Reps/Duration 10 min Comments pt was able to feel the anterior pelvic floor more towards the end of NMES. She was able to do some contract/ relax with her pelvic floor today PT-OP-T Assessment and Plan Start: 04/22/22 08:55 Freq: Status: Active Protocol: Document 08/05/22 16:06 [facility] (Rec: 08/05/22 18:32 [facility] [id number]) Physical Therapy Assessment Assessment Summary Assessment Right leg did correct following MET for pubic upslip . We talked about avoiding leg crossing, With NMES Damaris was able to feel more of the anterior pelvic floor. She is working on her stretches. Her tailbone pain does not seem as severe but she hasn't been running either due to plantar fascitis Physical Therapy Plan Frequency and Duration Frequency of Treatment 1x/Week Duration of treatment (weeks) 12 Plan of Care Start Date 07/22/22 Plan of Care End Date 10/14/22 Therapeutic Interventions Therapeutic Interventions Home Exercise Program,Manual Therapy,Neuromuscular Re- education,Patient/Caregiver Education,Therapeutic Exercises Next Visit Focus/Plan Next Note Type Treatment Note Next Visit Plan NMES for pelvic floor facilitation. EMG biofeedback and continued MFR techniques.
--- NOTE | 2022-08-14 18:07 | PT.OTN ---
Current Diagnoses Lesion of sciatic nerve, right lower limb (08/14/22) Other chronic pain (08/14/22) Unequal limb length (acquired), unspecified site (08/14/22) Pain in right hip (08/14/22) Pain in left hip (08/14/22) Stiffness of unspecified joint, not elsewhere classified (08/14/22) Sacrococcygeal disorders, not elsewhere classified (08/14/22) Other specified disorders of muscle (08/14/22) Trochanteric bursitis, right hip (08/14/22) Iliotibial band syndrome, right leg (08/14/22) Dizziness and giddiness (08/14/22) Sprain of other parts of lumbar spine and pelvis, initial encounter (08/14/22) Personal history of other specified conditions (08/14/22) Physical Therapy Treatment Note PT-OP-A Visit Information Start: 04/22/22 08:55 Freq: Status: Active Protocol: Document 08/14/22 16:00 [facility] (Rec: 08/14/22 16:01 [facility] [id number]) Out-Patient Physical Therapy Visit Information Visit Information Visit Type Treatment Note Visit Start Time 16:00 Visit Stop Time 16:45 Total Visit Minutes 45 Visit Number 9 PT-OP-B Current Condition Start: 04/22/22 08:55 Freq: Status: Active Protocol: Document 04/22/22 16:02 [facility] (Rec: 04/22/22 16:56 [facility] [id number]) Current Condition History of Current Condition History of Current Condition 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 Right sided muscle tightness at the sitting bone. Her right upper trap is connected to her right sided sitting bone they seem to go together. Hiking can be painful on her right hip if she is doing up/down hill. Gardening she does do but she feels it in her hip. SHe loves running and hasn't gotten to do it much PT-OP-C Subjective Start: 04/22/22 08:55 Freq: Status: Active Protocol: Document 08/14/22 16:00 [facility] (Rec: 08/14/22 18:05 [facility] [id number]) OP-PT Subjective Patient Comments Patient Comments Damaris reports she was fitted for her orthotics and they should take approx 1 month. She is feeling the plantar fascia pain and is working on stretching and rolling her foot. She feels the coccyx pain today as well PT-OP-F Manual Assessment Start: 04/22/22 08:55 Freq: Status: Active Protocol: Document 04/22/22 16:00 [facility] (Rec: 04/22/22 18:10 [facility] [id number]) Manual Assessments Soft Tissue Assessment Soft Tissue Mobility Assessment levator ani guarding R>L pelvic floor , coccygeus and illiococcygeus, guarding of the transverse perineum on the right posterior gluteal tightness R> L tightness of the iliopsoas right side Other Manual Assessments Other Manual Assessments right anterior innominant with right leg longer in supine PT-OP-I Pelvic Floor Start: 04/22/22 08:55 Freq: Status: Active Protocol: Document 04/29/22 16:00 [facility] (Rec: 04/29/22 17:24 [facility] [id number]) Pelvic Floor Assessment Comments Pelvic Floor Comments pt was able to relax a bit today and then was able to facilitate a little bit of a muscle contraction PT-OP-J Posture/Palpation/Skin Start: 04/22/22 08:55 Freq: Status: Active Protocol: Document 04/22/22 16:00 [facility] (Rec: 04/22/22 18:10 [facility] [id number]) Palpation Assessment Location piriformis Palpation Location Right piriformis Palpation Findings Soft Tissue Tightness,Muscle Guarding,Tenderness obturator internus Palpation Location right side Palpation Findings Soft Tissue Tightness,Muscle Guarding,Tenderness Transverse perineal muscle Palpation Findings Edema,Spasm,Muscle Guarding, Tenderness coccyx Palpation Location right lateral side of the coccyx Palpation Findings Soft Tissue Tightness,Muscle Guarding,Tenderness PT-OP-K Range of Motion Start: 04/22/22 18:10 Freq: Status: Active Protocol: Document 04/22/22 16:00 [facility] (Rec: 04/22/22 18:11 [facility] [id number]) Hip Goniometric Range of Motion Hip ROM Limitations Hip ROM Limitations Soft Tissue Tightness Comments pt is limited R>L for hip ER/ IR, hip flexion, and hip extension + radha test on the right PT-OP-L Special Tests Start: 04/22/22 08:55 Freq: Status: Active Protocol: Document 04/22/22 16:00 [facility] (Rec: 04/22/22 18:12 [facility] [id number]) Special Tests Lumbar Spine Special Tests ASLR TEST Test Results positive on the right for SI joint unlocking with left hip movement PT-OP-Q Treatments Start: 04/22/22 08:55 Freq: Status: Active Protocol: Document 08/14/22 16:00 [facility] (Rec: 08/14/22 18:04 [facility] [id number]) Manual Therapy Treatment Soft Tissue Mobilization hip flexors Mobilization Type Sustained Pressure Intensity/Depth Moderate Body Position Hooklying Comments in radha test position levator ani MFR working on both sides of the pelvic floor lifting up Body Position Hooklying Comments good tolerance with right sided pelvic floor relaxation following levator ani relese Body Location right levator ani Body Position Hooklying Comments release of the right levator ani coccygeus and iliococcygeus with MFR technique Joint Mobilizations MET for right pubic upslip Reps/Duration x 5 reps MET for right anterior rotation Reps/Duration x 5 reps sacrum Joint right counter nutation Neuro Re-Education Treatment Other Activities NMES for the pelvic floor Details NMES for the pelvic floor Reps/Duration 10 min Comments pt was able to feel both sides of the pelvic floor with the NMES She was able to do some contract/relax with her pelvic floor today PT-OP-T Assessment and Plan Start: 04/22/22 08:55 Freq: Status: Active Protocol: Document 08/14/22 16:00 [facility] (Rec: 08/14/22 18:04 [facility] [id number]) Physical Therapy Assessment Goals 3 Impairment pelvic floor weakness MMT 1/5, difficulty recruiting any pelvic floor muscles due to guarding and spasm [employer] Goal (LTG) once pelvic floor tone is reduced pt is able to recruit her pelvic floor and strengthen to improve muscle strength to a 3/5 MMT or better GOAL NOT YET MET LTG Duration 12 weeks 2 Impairment guarding and spasm of the right>left levator ani specifically the coccygeus and illiococcygeus Short Term Goal (STG) Damaris is given home stretches to begin helping to reduce tension in her pelvic floor Damaris is working on a home stretching program STG Duration 4 weeks [employer] Goal (LTG) Manual therapy techniques for the pelvic floor will be used to help reduce guarding and tension in the pelvic nesha and at the attachments to the coccyx bone Good progress LTG Duration 12 weeks 1 Impairment hip buttock and coccyx pain made worse with running and standing [facility] Goal (LTG) Damaris reports a overall reduction in her pain levels and is able to return to running 2 miles Damaris reports intermittent tailbone pain. LTG Duration 12 weeks Assessment Summary Assessment Damaris was not as guarded today in her pelvic floor. She was able to do some contract relax today and is able to better engage her pelvic floor. She was able to feel more of the NMES today as well. Damaris currently has one visit left scheduled. Physical Therapy Plan Frequency and Duration Frequency of Treatment 1x/Week Duration of treatment (weeks) 12 Plan of Care Start Date 07/22/22 Plan of Care End Date 10/14/22 Therapeutic Interventions Therapeutic Interventions Home Exercise Program,Manual Therapy,Neuromuscular Re- education,Patient/Caregiver Education,Therapeutic Exercises Next Visit Focus/Plan Next Note Type Treatment Note Next Visit Plan NMES and EMG biofeedback for the pelvic floor
--- NOTE | 2022-08-21 16:41 | PT.OTN ---
Current Diagnoses Lesion of sciatic nerve, right lower limb (08/19/22) Other chronic pain (08/19/22) Unequal limb length (acquired), unspecified site (08/19/22) Pain in right hip (08/19/22) Pain in left hip (08/19/22) Stiffness of unspecified joint, not elsewhere classified (08/19/22) Sacrococcygeal disorders, not elsewhere classified (08/19/22) Other specified disorders of muscle (08/19/22) Trochanteric bursitis, right hip (08/19/22) Iliotibial band syndrome, right leg (08/19/22) Dizziness and giddiness (08/19/22) Sprain of other parts of lumbar spine and pelvis, initial encounter (08/19/22) Personal history of other specified conditions (08/19/22) Physical Therapy Treatment Note PT-OP-A Visit Information Start: 04/22/22 08:55 Freq: Status: Active Protocol: Document 08/19/22 16:15 [facility] (Rec: 08/19/22 18:26 [facility] [id number]) Out-Patient Physical Therapy Visit Information Visit Information Visit Type Treatment Note Visit Start Time 16:15 Visit Stop Time 17:00 Total Visit Minutes 45 Visit Number 10 PT-OP-B Current Condition Start: 04/22/22 08:55 Freq: Status: Active Protocol: Document 04/22/22 16:02 [facility] (Rec: 04/22/22 16:56 [facility] [id number]) Current Condition History of Current Condition History of Current Condition 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 Right sided muscle tightness at the sitting bone. Her right upper trap is connected to her right sided sitting bone they seem to go together. Hiking can be painful on her right hip if she is doing up/down hill. Gardening she does do but she feels it in her hip. 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 She is still feeling the plantar fascia pain and awaiting her orthotics. Her coccyx pain is intermittent and she is trying to work on the stretches she has for a home program PT-OP-F Manual Assessment Start: 04/22/22 08:55 Freq: Status: Active Protocol: Document 04/22/22 16:00 [facility] (Rec: 04/22/22 18:10 [facility] [id number]) Manual Assessments Soft Tissue Assessment Soft Tissue Mobility Assessment levator ani guarding R>L pelvic floor , coccygeus and illiococcygeus, guarding of the transverse perineum on the right posterior gluteal tightness R> L tightness of the iliopsoas right side Other Manual Assessments Other Manual Assessments right anterior innominant with right leg longer in supine PT-OP-I Pelvic Floor Start: 04/22/22 08:55 Freq: Status: Active Protocol: Document 04/29/22 16:00 [facility] (Rec: 04/29/22 17:24 [facility] [id number]) Pelvic Floor Assessment Comments Pelvic Floor Comments pt was able to relax a bit today and then was able to facilitate a little bit of a muscle contraction PT-OP-J Posture/Palpation/Skin Start: 04/22/22 08:55 Freq: Status: Active Protocol: Document 04/22/22 16:00 [facility] (Rec: 04/22/22 18:10 [facility] [id number]) Palpation Assessment Location piriformis Palpation Location Right piriformis Palpation Findings Soft Tissue Tightness,Muscle Guarding,Tenderness obturator internus Palpation Location right side Palpation Findings Soft Tissue Tightness,Muscle Guarding,Tenderness Transverse perineal muscle Palpation Findings Edema,Spasm,Muscle Guarding, Tenderness coccyx Palpation Location right lateral side of the coccyx Palpation Findings Soft Tissue Tightness,Muscle Guarding,Tenderness PT-OP-K Range of Motion Start: 04/22/22 18:10 Freq: Status: Active Protocol: Document 04/22/22 16:00 [facility] (Rec: 04/22/22 18:11 [facility] [id number]) Hip Goniometric Range of Motion Hip ROM Limitations Hip ROM Limitations Soft Tissue Tightness Comments pt is limited R>L for hip ER/ IR, hip flexion, and hip extension + radha test on the right PT-OP-L Special Tests Start: 04/22/22 08:55 Freq: Status: Active Protocol: Document 04/22/22 16:00 [facility] (Rec: 04/22/22 18:12 [facility] [id number]) Special Tests Lumbar Spine Special Tests ASLR TEST Test Results positive on the right for SI joint unlocking with left hip movement PT-OP-Q Treatments Start: 04/22/22 08:55 Freq: Status: Active Protocol: Document 08/19/22 16:15 [facility] (Rec: 08/19/22 18:28 [facility] [id number]) Therapeutic Exercises Supine Exercises TA with march Reps/Minutes x 10 Sidelying Exercises sidelying hip abduction and hip circles Reps/Minutes x 10 each Standing Exercises modified down dog stretch Reps/Minutes hold 1-2 min Comments hands on chair for support standing squats with sitting bones spread Reps/Minutes x 10 Other Exercises standing transverse abdominal contraction Comments both against the wall as well as in a standing position leaning over table Manual Therapy Treatment Soft Tissue Mobilization transverse perineum Body Location right side transverse perineum Comments tightness noted initially but this did loosen with treatment levator ani relese Body Location right levator ani Body Position Hooklying Comments release of the right levator ani coccygeus and iliococcygeus with MFR technique PT-OP-T Assessment and Plan Start: 04/22/22 08:55 Freq: Status: Active Protocol: Document 08/19/22 16:15 [facility] (Rec: 08/21/22 16:41 [facility] [id number]) Physical Therapy Assessment Goals 3 Impairment pelvic floor weakness MMT 1/5, difficulty recruiting any pelvic floor muscles due to guarding and spasm Halfway Goal (LTG) once pelvic floor tone is reduced pt is able to recruit her pelvic floor and strengthen to improve muscle strength to a 3/5 MMT or better Pt showing improvement with pelvic floor recruitment now. She is still very weak however she is able to perform a pelvic floor contraction LTG Duration 12 weeks 2 Impairment guarding and spasm of the right>left levator ani specifically the coccygeus and illiococcygeus Short Term Goal (STG) Damaris is given home stretches to begin helping to reduce tension in her pelvic floor Damaris is working on a home stretching program STG Duration 4 weeks Halfway Goal (LTG) Manual therapy techniques for the pelvic floor will be used to help reduce guarding and tension in the pelvic nesha and at the attachments to the coccyx bone Good progress LTG Duration 12 weeks 1 Impairment hip buttock and coccyx pain made worse with running and standing Halfway Goal (LTG) Damaris reports a overall reduction in her pain levels and is able to return to running 2 miles Damaris reports intermittent tailbone pain. She has not returned to running due to plantar fascitis. She is awaiting her orthotics LTG Duration 12 weeks Assessment Summary Assessment Damaris has made progress overall and has a home program to work with now. She tends to unlock in her Right SI joint which then triggers the coccyx pain. She has ordered a SI belt but needs to return it for a different size. At this point she will be discharged from PT due to insurance limitations. I would be happy to continued PT for her in the future Physical Therapy Plan Discharge Physical Therapy Discharge Comments insurance limits
== END 2022-11-13 10:27 | disposition home or self-care (01) ==
LOC: PHYS 16:00
PROVIDERS: Family Provider Family Medicine; PCP Family Medicine; Referring Provider Family Medicine; Visit Provider Family Medicine
DX: Z87.898 Personal history of other specified conditions (principal); M25.551 Pain in right hip; G89.29 Other chronic pain; M62.89 Other specified disorders of muscle; R42 Dizziness and giddiness; M70.61 Trochanteric bursitis, right hip; M76.31 Iliotibial band syndrome, right leg; M21.70 Unequal limb length (acquired), unspecified site; M53.3 Sacrococcygeal disorders, not elsewhere classified; S33.8XXA Sprain of other parts of lumbar spine and pelvis, initial encounter; M25.552 Pain in left hip; G57.01 Lesion of sciatic nerve, right lower limb; M25.60 Stiffness of unspecified joint, not elsewhere classified
CPT/HCPCS: 97110; 97112; 97140; 97161; 97535

== ENCOUNTER → 2023-03-05 15:34 | Outpatient (CLI) | payer OTHER, SELFPAY ==
--- NOTE | 2023-03-05 | DI.MG.S_ITS ---
BILATERAL DIGITAL SCREENING MAMMOGRAM 3D/2D WITH CAD: 03/05/2023 CLINICAL: Routine screening. Comparison is made to exams dated: 01/29/2022 mammogram, 01/18/2021 mammogram, and 03/08/2019 mammogram - [facility]. Both breasts are heterogeneously dense, which may obscure small masses (category c / 51-75% glandular tissue). Current study was also evaluated with a Computer Aided Detection (CAD) system. No significant masses, calcifications, or other findings are seen in either breast. There has been no significant interval change. IMPRESSION: NEGATIVE There is no mammographic evidence of malignancy. A 1 year screening mammogram is recommended. Based on the Tyrer Cuzick model (a risk assessment model) the patient's lifetime risk is 13.9% and her 10 year risk is 3.4%. According to the ACR, ACS, and NCCN guidelines, an annual breast MRI exam along with mammogram is recommended if the patient's lifetime risk is 20% or greater. This exam was interpreted at Station ID: [id number]. NOTE: For mammograms, a report in lay terms will be sent to the patient. Approximately 15% of breast malignancies will not be visualized mammographically. In the management of a palpable breast mass, a negative mammogram must not discourage biopsy of a clinically suspicious lesion. Electronically Signed By: Ritu montana/rajesh:03/05/2023 17:06:44 letter sent: Normal Exam ACR BI-RADS Category 1: Negative [id number]
== END ==
PROVIDERS: Family Provider Family Medicine; PCP Family Medicine; Referring Provider Family Medicine; Visit Provider Family Medicine
DX: Z12.31 Encounter for screening mammogram for malignant neoplasm of breast (principal)
CPT/HCPCS: 77063; 77067

== ENCOUNTER → 2023-08-18 16:52 | Outpatient (CLI) | payer OTHER, SELFPAY ==
[2023-08-18 17:45] LABS: Influenza A - CEPHEID Flu A NEGATIVE (NEGATIVE); Influenza B - CEPHEID Flu B NEGATIVE (NEGATIVE); Respiratory Syncytial Virus Negative (Negative)
[2023-08-18 18:18] LABS: COVID-19 CEPHEID 4-PLEX PCR Negative (Negative)
== END ==
PROVIDERS: Family Provider Family Medicine; PCP Family Medicine; Visit Provider Student in an Organized Health Care Education/Training Program
DX: R05.1 Acute cough (principal)
CPT/HCPCS: 0241U

== ENCOUNTER → 2023-08-18 16:57 | Outpatient (CLI) | payer OTHER, SELFPAY ==
--- NOTE | 2023-08-18 16:59 | DI.RAD.S_ITS ---
PROCEDURE: XR CHEST 2V INDICATIONS: covid 27D ago; worsening cough/chest tightness TECHNIQUE: 2 views of the chest were acquired. COMPARISON: None. FINDINGS: Surgical changes and devices: None. Lungs and pleura: Lungs are clear. No pleural effusions or pneumothorax. Mediastinum: Mediastinal contours are normal. Heart size is normal. Bones and chest wall: No suspicious bony abnormalities. Soft tissues appear unremarkable. IMPRESSION: No acute pulmonary process. Dictated by: Alexa Braga M.D. on 08/18/2023 at 17:24 Approved by: Alexa Braga M.D. on 08/18/2023 at 17:24
== END ==
PROVIDERS: Family Provider Family Medicine; PCP Family Medicine; Referring Provider Student in an Organized Health Care Education/Training Program; Visit Provider Student in an Organized Health Care Education/Training Program
DX: J06.9 Acute upper respiratory infection, unspecified (principal); R05.8 Other specified cough; R05.1 Acute cough
CPT/HCPCS: 0241U; 71046

== ENCOUNTER → 2024-03-09 08:44 | Outpatient (CLI) | payer OTHER, SELFPAY ==
[2024-03-09 10:35] LABS: Add Manual Diff / Slide Review NO; Basophils Absolute Auto 0 /uL (0-100); Basophils Percent Auto 0.4 % (0-2); Eosinophils Absolute Auto 100 /uL (0-450); Eosinophils Percent Auto 1.7 % (2-4); Hematocrit 41.4 % (36-46); Hemoglobin 14.2 g/dL (12.0-16.0); Lymphocytes Absolute Auto 1400 /uL (1100-4500); Lymphocytes Percent Auto 27.3 % (25-40); Mean Corpuscular HGB Conc 34.2 % (30-36); Mean Corpuscular Volume 90.8 fL (80-100); Monocytes Absolute Auto 500 /uL (0-900); Monocytes Percent Auto 9.7 % (3-14); Neutrophils Absolute Auto 3000 /uL (1500-7000); Neutrophils Percent Auto 60.9 % (50-75); Platelet Count 299 X10^3/uL (150-400); Red Blood Cell Count 4.56 X10^6/uL (4.0-5.2); Red Cell Distribution Width 13.2 % (11.6-14.8); White Blood Cell Count 4.9 X10^3/uL (4.5-11.0)
[2024-03-09 11:04] LABS: Alanine Aminotransferase 23 IU/L (<35); Albumin 3.8 g/dL (3.5-5.0); Albumin Globulin Ratio 1.6 (1.0-2.8); Alkaline Phosphatase 46 U/L (38-126); Aspartate Aminotransferase 26 IU/L (14-36); BUN Creatinine Ratio 14.6 (6-22); Bilirubin Total 0.6 mg/dL (0.2-1.3); Blood Urea Nitrogen 12 mg/dL (7-17); Carbon Dioxide 24 mmol/L (22-32); Chloride 107 mmol/L (98-107); Cholesterol 139 mg/dL (140-199); Estimated Glomerular Filt Rate > 60 mL/min (>60); Globulin 2.4 g/dL (1.7-4.1); Glucose 85 mg/dL (70-100); HDL Cholesterol 51 mg/dL (40-60); HEMOLYSIS < 15 (0-50); LDL Cholesterol Calculated 70 mg/dL (<100); Sodium 138 mmol/L (137-145); Total Protein 6.2 g/dL (6.3-8.2); Triglycerides 91 mg/dL (35-150)
[2024-03-09 11:30] LABS: TSH w/ Reflex to FT4 2.05 uIU/mL (0.47-4.68)
== END ==
PROVIDERS: Family Provider Family Medicine; PCP Family Medicine; Referring Provider Family Medicine; Visit Provider Family Medicine
DX: Z00.00 Encounter for general adult medical examination without abnormal findings (principal); Z86.2 Personal history of diseases of the blood and blood-forming organs and certain disorders involving the immune mechanism; Z13.29 Encounter for screening for other suspected endocrine disorder; Z13.6 Encounter for screening for cardiovascular disorders; Z13.220 Encounter for screening for lipoid disorders
CPT/HCPCS: 36415; 80053; 80061; 84443; 85025

== ENCOUNTER → 2024-03-28 16:48 | Outpatient (CLI) | payer OTHER, SELFPAY ==
--- NOTE | 2024-03-28 16:49 | DI.RAD.S_ITS ---
PROCEDURE: XR HIP W PEL IF DONE RT 2V INDICATIONS: hip pain TECHNIQUE: AP pelvis with lateral view(s) of the right hip(s). COMPARISON: None. FINDINGS: Bones: No fractures or dislocations. Pelvic ring appears intact. No suspicious bony lesions. Soft tissues: The visualized bowel gas pattern is normal. No suspicious soft tissue calcifications. IMPRESSION: No acute bony abnormality. Dictated by: Noe Maldonado M.D. on 03/30/2024 at 15:00 Approved by: Noe Maldonado M.D. on 03/30/2024 at 15:01
== END ==
LOC: RAD 16:48
PROVIDERS: Family Provider Family Medicine; PCP Family Medicine; Referring Provider Family Medicine; Visit Provider Family Medicine
DX: M25.551 Pain in right hip (principal); G89.29 Other chronic pain
CPT/HCPCS: 73502

== ENCOUNTER 2024-07-05 10:14 | Day surgery (SDC) | payer OTHER, SELFPAY ==
--- NOTE | 2024-07-05 | PATH_ITS ---
[facility] Accession Number: [id number] No. of containers..01 Tissue . 01 Material submitted: . esophagus, E-G Junction - GE JUNCTION . 01 Diagnosis: GASTROESOPHAGEAL JUNCTION, BIOPSY: Squamous mucosa with no diagnostic abnormality. No glandular mucosa present for evaluation. Negative for dysplasia or malignancy. MRV 07/07/2024 1253 Local . 01 Electronically signed: . Tyler Mendez MD, PhD, Pathologist NPI- [id number] . 01 Gross description: . Received in formalin with two patient identifiers and GE junction, is a single dixon soft tissue fragment, 0.3 cm in greatest dimension, submitted in A1. ([id number]) /MRV 07/06/2024 2110 Local . 01 Pathologist provided ICD-10: K21.9 . 01 CPT . 319650 Specimen Comment: A courtesy copy of this report has been sent to [phone] Performed at: [address] [facility] [address], [place], [place] [id number] MD Lobo Vail MD Phone: [phone]
[2024-07-05 10:48] VITALS: BP 117/78; PULSE 63; RESP 14; TEMP 36.9; O2SAT 99
--- NOTE | 2024-07-05 11:17 | PM.HP.1 ---
History of Present Illness History of Present Illness Date Patient Seen: 07/05/24 Time Patient Seen: 11:17 Chief complaint: [facility] [place] Narrative: 54-year-old woman with chronic reflux here for diagnostic upper endoscopy. Please refer to the H&P from April 2024 for further detail. Symptoms are generally well controlled on omeprazole 10 mg twice daily. [facility] Medical History Pelvis tilted Chronic right shoulder pain History of dysphagia GERD with esophagitis Cranial somatic dysfunction Left temporomandibular joint disorder, unspecified Ear pain, left Excessive cerumen in right ear canal Plantar fasciitis, right Generalized anxiety disorder with panic attacks Coccyx disorder Iliotibial band syndrome, right leg Acquired short leg syndrome on left Segmental and somatic dysfunction of rib cage Sprain and strain of sacrotuberous (ligament) Back stiffness Thoracic region somatic dysfunction Cervical somatic dysfunction Piriformis syndrome of right side History of iron deficiency anemia Segmental and somatic dysfunction of abdomen and other regions Lumbar region somatic dysfunction Sacral region somatic dysfunction Somatic dysfunction of lower extremity Pelvic somatic dysfunction Pelvic floor dysfunction in female Stress incontinence Chronic right hip pain Vision disorder Migraines (~1999) Headache (~1986) Chicken pox (~1977) Painful menstrual periods (~1985) Irregular menstrual cycle (~1985) Infertility (~2001) Heavy menstrual period (~1985) Endometriosis (~2002) Abnormal Pap smear of cervix (~1993) Pulmonary fibrosis PMDD (premenstrual dysphoric disorder) (~2006) Depression (~2004) Anxiety (~2004) Fracture (~1994) Foot pain (~2009) Carpal tunnel syndrome (~1995) Actinic keratosis (~2003) Anemia (~1987) Vertigo (~2014) Ruptured tympanic membrane (~1994) Surgical History Anesthesia Ovarian cyst rupture (~2002) Status post osteotomy (~06/2014) In vitro fertilization (~2002) Status post laparotomy (~2002) Status post hysteroscopy (~2002) History of third molar tooth extraction (~1986) Family History Father Age: 80 Hypertension High cholesterol Gout Mother Lung cancer Heart disease Hypertension Mental health problem Sister Age: 54 Anxiety and depression Sister Age: 51 Bipolar 1 disorder Grandfather No problems noted. Grandmother No problems noted. Grandfather No problems noted. Grandmother No problems noted. Social History household members: family Smoking Status: Never smoker alcohol intake: current Meds Home Medications and Allergies Home Medications Medication Instructions Recorded Confirmed Type bupropion HCl 150 mg tablet,12 hr 150 mg PO BID #180 tabs 10/13/23 07/05/24 Rx sustained-release lorazepam 0.5 mg tablet See Rx Instructions .Route 03/18/24 07/05/24 Rx .COMPLEX #30 tabs omeprazole 10 mg capsule,delayed 10 mg PO BID PRN GERD #180 caps 03/18/24 07/05/24 Rx release Allergies Allergy/AdvReac Type Severity Reaction Status Date / Time amoxicillin [From AUGMENTIN] Allergy Mild rash Verified 07/05/24 10:33 clavulanic acid Allergy Mild rash Verified 07/05/24 10:33 [From AUGMENTIN] latex Allergy Mild Verified 07/05/24 10:33 Exam Vital Signs (past 8 hours): - 07/05/24 10:48 Temperature 98.5 F Pulse Rate 63 Respiratory Rate 14 Blood Pressure 117/78 Pulse Oximetry 99 Oxygen Delivery Method Room Air Oxygen Delivery Method Room Air Narrative Exam Narrative: General adult woman alert oriented no acute distress Chest nonlabored respiration Extremities warm well perfused Assessment & Plan Assessment and plan (1) GERD with esophagitis: Qualifiers: Esophagitis bleeding: without hemorrhage Qualified Code(s): K21.00 - Gastro-esophageal reflux disease with esophagitis, without bleeding Status: Acute Assessment & Plan narrative: 54-year-old woman with chronic GERD here for diagnostic esophagogastroduodenoscopy. Overview of the procedure its risks benefits reviewed. Questions answered and she provides consent to proceed. Time-Based Coding :: [TOTAL MINUTES] spent with patient and on the chart (including review of chart, obtaining history, exam, reviewing outside data, placing orders, documenting exam and treatment plan, and counseling patient) on [DATE].
[2024-07-05 11:35] VITALS: BP 119/80; PULSE 66; RESP 18; TEMP 37.1; O2SAT 95
--- NOTE | 2024-07-05 11:38 | P.OP.EGD_ITS ---
Operative Date/Time/Diagnoses Date of procedure: 07/05/24 Time of procedure: 11:38 Pre-op diagnosis: Gastroesophageal reflux disease Post-op diagnosis: other (Hiatal hernia) Procedure & Clinicians Study performed: Esophagogastroduodenoscopy Same procedure as scheduled: Yes Indications: 54-year-old woman with chronic reflux here for diagnostic upper endoscopy Surgeon: Regino Malhotra Procedure Notes Procedure in detail: The history and physical was performed/updated and the patient is ASA class is 2. The procedure was discussed in detail with the patient. Potential risks complications including infection, bleeding, missed diagnosis, perforation, need for surgery, and were explained. Their questions were answered and informed consent was obtained. Patient placed in left lateral decubitus position. Time out was performed. Pro cedural sedation was administered by Anesthesia. A bite block was placed. the scope was inserted into the mouth and advanced through the esophagus and into the stomach. The pylorus was intubated and the duodenum was examined to the 2nd portion. The scope was then withdrawn into the stomach and was retroflexed. The stomach was decompressed and scope was withdrawn slowly through the esophagus. FINDINGS -small to moderate size hiatal hernia -normal GE junction no obvious findings of Barretts esophagus. Biopsy of the GE junction performed with forceps. The patient tolerated the procedure well and will be discharged when they meet criteria. Specimen(s): other (GE junction) Impression: Hiatal hernia Post-procedure Plan for aftercare: Follow up in general surgery clinic for further discussion of hiatal hernia or continue with omeprazole as written Disposition: same day surgery
[2024-07-05 11:40] VITALS: BP 125/87; PULSE 67; RESP 19; TEMP 37; O2SAT 95
[2024-07-05 11:48] VITALS: BP 128/87; PULSE 75; RESP 12; TEMP 37; O2SAT 96
== END 2024-07-05 12:09 | disposition home or self-care (01) ==
PROVIDERS: Surgery; Family Provider Family Medicine; PCP Family Medicine; Referring Provider Surgery; Visit Provider Surgery
PROC: 0DJ08ZZ Inspection of Upper Intestinal Tract, Via Natural or Artificial Opening Endoscopic (ICD-10-PCS; CPT 43235; principal; 2024-07-05 11:15)
DX: K21.9 Gastro-esophageal reflux disease without esophagitis (principal); K44.9 Diaphragmatic hernia without obstruction or gangrene
CPT/HCPCS: 43239; J2704

== ENCOUNTER → 2025-03-25 09:57 | Outpatient (CLI) | payer OTHER, SELFPAY ==
--- NOTE | 2025-03-25 09:59 | DI.MG.S_ITS ---
MM screening mammo BI: 03/25/2025. BI-RADS: 1 CLINICAL: 54-year old female for bilateral screening mammogram. Tyrer-Cuzick lifetime risk of 12.5%. No personal or first-degree family history of breast cancer. PRIOR EXAMS 03/05/2023, 01/29/2022, 01/18/2021, 03/08/2019. MAMMOGRAPHY TECHNIQUE: 2D and 3D (tomosynthesis) digital mammographic views obtained, with additional images as needed for full coverage. Current study was also evaluated with a Computer Aided Detection (CAD) system. DENSITY C. The breasts are heterogeneously dense, which may obscure small masses. MAMMOGRAPHY FINDINGS Bilateral: No suspicious mass, asymmetry, microcalcification, or other abnormality seen. IMPRESSION: * No evidence of malignancy. RECOMMENDATIONS Bilateral * Annual screening mammography. OVERALL ASSESSMENT CATEGORY BI-RADS-1: Negative. The [employer] recommends annual screening mammography beginning at age 40 for women with average risk of breast cancer. ELECTRONICALLY SIGNED: Darron Marinelli M.D. on 03/26/2025 at 08:27:44 PM PT Interpreting Station ID: [id number]
== END ==
LOC: MAMMO 09:58
PROVIDERS: PCP Family Medicine; Referring Provider Family Medicine; Visit Provider Family Medicine
DX: Z12.31 Encounter for screening mammogram for malignant neoplasm of breast (principal); R92.333 Mammographic heterogeneous density, bilateral breasts
CPT/HCPCS: 77063; 77067